=== PATIENT | female | born 1945 | race Caucasian/White ===

== ENCOUNTER 2016-07-21 08:47 | Day surgery (SDC) | payer OTHER, MEDICARE ==
[2016-07-21] MEDS ORDERED: PROPOFOL 20 ML ONE ×3 (09:19)
[2016-07-21 09:22] VITALS: BMI 26.6
[2016-07-21 10:02] VITALS: TEMP 97.5
[2016-07-21 11:48] VITALS: BP 104/52; PULSE 58
--- NOTE | 2016-07-24 13:42 | PATH ---
Surgical Pathology Report Patient Name: LISA MORGAN [facility]. Rec. #: [id number] /Age/Gender: 1945 (Age: 71) / F Account: [id number] Location: [facility]-ENDOS[facility] Taken: 07/21/2016 Received: 07/21/2016 Reported: 07/24/2016 Physicians: Darnell Sanders M.D. 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 DUODENUM, SECOND PORTION AND BULB, BIOPSY: DUODENAL MUCOSA WITH CHRONIC INFLAMMATION AND GREG'S GLANDS HYPERPLASIA. NO HISTOLOGIC EVIDENCE OF GLUTEN SENSITIVE ENTEROPATHY (CELIAC DISEASE). B. POSTBULBAR DUODENUM, STRICTURE, BIOPSY: DUODENAL MUCOSA WITH ACTIVE AND CHRONIC INFLAMMATION WITH FOCAL SURFACE ULCERATION, GREG'S GLANDS HYPERPLASIA AND FOCAL GASTRIC METAPLASIA CONSISTENT WITH ACTIVE PEPTIC DUODENITIS. NO HISTOLOGIC EVIDENCE OF GLUTEN SENSITIVE ENTEROPATHY (CELIAC DISEASE). NO DYSPLASIA/ADENOMA OR CARCINOMA IDENTIFIED. C. IRREGULAR Z-LINE/GE JUNCTION, BIOPSY: SQUAMOUS AND COLUMNAR MUCOSA WITH CHRONIC INFLAMMATION AND NTESTINAL METAPLASIA (CONSISTENT WITH SHEEHAN'S ESOPHAGUS). NEGATIVE FOR DYSPLASIA. Electronically Signed Jimbo Juarez M.D. Gross Description A. Received in formalin, labeled "second portion of duodenum and bulb" are 3 arambula, irregular portions of soft tissue averaging 0.4 cm in greatest dimension. The specimens are submitted in toto in one cassette. B. Received in formalin, labeled "biopsy duodenum post bulbar stricture" are 4 arambula, irregular portions of soft tissue ranging from 0.1-0.3 cm in greatest dimension. The specimens are submitted in toto in one cassette. C. Received in formalin, labeled "biopsy GE junction" are 6 arambula, irregular portions of soft tissue ranging from 0.1-0.3 cm in greatest dimension. The specimens are submitted in toto in one cassette. 07/21/2016 saudi07/21/2016
== END 2016-07-21 12:02 | disposition home or self-care (01) ==
LOC: JASU-ENDO 08:47
PROVIDERS: ATTEND Internal Medicine Gastroenterology
PROC: 0DB58ZX Excision of Esophagus, Via Natural or Artificial Opening Endoscopic, Diagnostic (ICD-10-PCS; 2016-07-21)
PROC: 0DB98ZX Excision of Duodenum, Via Natural or Artificial Opening Endoscopic, Diagnostic (ICD-10-PCS; principal; 2016-07-21 09:00)
DX: K31.5 Obstruction of duodenum (principal); K21.9 Gastro-esophageal reflux disease without esophagitis; K22.70 Barrett's esophagus without dysplasia; K44.9 Diaphragmatic hernia without obstruction or gangrene; K31.819 Angiodysplasia of stomach and duodenum without bleeding
CPT/HCPCS: 74220-TC; 74240-TC; 88305-TC

== ENCOUNTER 2017-09-20 06:19 | Day surgery (SDC) | payer OTHER, MEDICARE ==
[2017-09-19 15:54] VITALS: BMI 27.6
[2017-09-20] MEDS ORDERED: SUCCINYLCHOLINE CHLORIDE 200 MG/10 ML VIAL ONE (07:08)
[2017-09-20] MEDS ORDERED: MIDAZOLAM HCL 2 MG/2 ML SINGLE DOSE VIAL ONE (07:08)
[2017-09-20] MEDS ORDERED: PROPOFOL 20 ML ONE ×2 (07:08)
[2017-09-20] MEDS ORDERED: LIDOCAINE HCL 1%, 10 MG/ML (20ML VIAL) ONE (07:21)
[2017-09-20] MEDS ORDERED: BUPIVACAINE HCL/PF 0.5% (5MG/ML) 10 ML VIAL ONE (07:21)
[2017-09-20] MEDS ORDERED: oxyCODONE HCL 5 MG TABLET PO PRN ×2 (07:53)
[2017-09-20] MEDS ORDERED: ONDANSETRON 4 MG/2 ML VIAL IVPUSH PRN (07:53)
[2017-09-20] MEDS ORDERED: LACTATED RINGERS SOLUTION 1,000 ML IV SCH (08:00)
--- NOTE | 2017-09-20 08:19 | HP ---
Satellite [facility] - Chief Complaint Chief Complaint: left hand pain, numbness, weakness History of Present Illness: left CTS History Source: Patient Limitations to Obtaining History: No Limitations - Past Medical History Allergies/Adverse Reactions: Allergies Allergy/AdvReac Type Severity Reaction Status Date / Time No Known Allergies Allergy Verified 09/20/17 07:12 - Current Medications Current Medications: Home Medications Medication Instructions Recorded Acetaminophen [Tylenol] 1,300 mg PO DAILY PRN 07/20/16 Chondroitin Sulfate A [Chondroitin 333 mg PO DAILY 07/20/16 Sulfate] Garlic 1 each PO DAILY 07/20/16 Multivitamin with Minerals [Icaps 1 each PO DAILY 07/20/16 Plus] Grafton-3 Fatty Acids [Fish Oil] 300 mg PO DAILY 07/20/16 Pantoprazole Sodium [Protonix] 40 mg PO DAILY 07/20/16 Prevagen 1 tab PO DAILY 07/20/16 Ubidecarenone [Coenzyme Q-10] 100 mg PO DAILY 07/20/16 Bimatoprost [Lumigan] 1 drop IO HS 09/19/17 Bioflav,Lemon/Vit Bcomp,C 1 each PO DAILY 09/19/17 [Lipo-Flavonoid Plus Caplet] Oxycodone HCl/Acetaminophen 0.5 tab PO BID 09/19/17 [Percocet 5-325 mg Tablet] Timolol 0.5% [Timoptic 0.5%] 1 drop OD DAILY 09/19/17 Satellite Physical Exam - Physical Examination Vital Signs: Vital Signs Period Temp Pulse Resp BP Sys/Soliz Pulse Ox Last 24 Hr 97.8 F-97.8 F 58-58 20-20 119-119/70-70 97 General Appearance: Well Nourished ENT: Clear Lung: Clear to auscultation Heart: Regular rate & rhythm Breasts: Soft Abdomen: Soft Extremities: No edema Satellite Impression/Plan - Impression/Plan Impression: left CTS Operative Procedure: left CTR Date to be Performed: 09/20/17
[2017-09-20] MEDS ORDERED: ceFAZolin SODIUM 1 GM VIAL ONE (08:20)
[2017-09-20] MEDS ORDERED: ceFAZolin SODIUM 1 GM VIAL IVPB ONE (08:25)
[2017-09-20] MEDS ORDERED: ROCURONIUM BROMIDE 50 MG/5 ML VIAL ONE (08:29)
[2017-09-20] MEDS ORDERED: LIDOCAINE HCL 1%, 10 MG/ML (20ML VIAL) INF ONE (08:31)
[2017-09-20] MEDS ORDERED: BUPIVACAINE HCL/PF 0.5% (5MG/ML) 10 ML VIAL IJ ONE (08:31)
--- NOTE | 2017-09-20 08:54 | OP ---
Operative Note - Note: Operative Date: 09/20/17 Pre-Operative Diagnosis: left CTS Operation: left CTR Post-Operative Diagnosis: Same as Pre-op Surgeon: Edson Taylor Anesthesiologist/MEDICAL STENOGRAPHER: Aileen Turpin Anesthesia: Local, MAC Specimens Removed: tenosynovium Estimated Blood Loss (mls): 0 Drains, Volume Out (mls): 0 Blood Volume Replaced (mls): 0 Fluid Volume Replaced (mls): 500 Operative Report Dictated: Yes
[2017-09-20 09:38] VITALS: TEMP 97.7
--- NOTE | 2017-09-20 10:22 | SPEC ---
DATE OF OPERATION: 09/20/2017 PREOPERATIVE DIAGNOSES: Left carpal tunnel syndrome and tenosynovitis. POSTOPERATIVE DIAGNOSES: Left carpal tunnel syndrome and tenosynovitis. PROCEDURE: Left carpal tunnel release and tenosynovectomy. SURGEON: Edson Taylor MD ASSISTANTS: None. ANESTHESIOLOGIST: , AIRPLANE RENTAL CLERK. ANESTHESIA: MAC anesthesia, local injection 12 mL 0.50% Marcaine and 1% lidocaine mix. DRAINS: None. COMPLICATIONS: None. SPECIMEN: Tenosynovium, left wrist. BLOOD LOSS: None. BLOOD GIVEN: None. FLUID REPLACEMENT: 500 mL Plasmalyte. This patient is a 72-year-old female with a preoperative diagnosis of severe left carpal tunnel syndrome. After understanding the potential risks, complications, alternatives, and benefits of surgery versus nonsurgical treatment, the patient elected to undergo this procedure. DESCRIPTION OF PROCEDURE: Patient was brought to the operating room, peripheral IV placed, IV sedation given. One gram of intravenous Ancef was given. MAC anesthesia was induced. A tourniquet was applied to the left upper arm and the left upper extremity was prepped and draped in sterile fashion. The entire case was done under 3.8 loupe magnification. A marking pen was utilized to saad out a longitudinal incision in an already existing skin crease. Twenty mL of 0.5% Marcaine mixed with 1% Lidocaine was injected in and around the surgical incision. The left upper extremity was elevated, exsanguinated with an Esmarch bandage and the tourniquet inflated to 250 mmHg. A No. 15 scalpel blade was utilized to cut down through the skin. Subcutaneous hemostasis was achieved with the bipolar cautery. Dissection was done through the superficial palmar fascia. Self-retaining retractors were placed into the wound. Under direct visualization, the transverse carpal ligament was transected with a No. 15 scalpel blade, exposing the median nerve and the contents of the carpal tunnel. The distal and proximal extents of the release were completed with a Littler scissor and checked with irrigation and my small finger. They were seen to be complete. Limited dissection was done on the radial side of the median nerve and more extensive dissection was done on the ulnar side of the median nerve. The patients nerve was seen to be quite compressed by epineurium and therefore a limited epineurotomy was performed. A Ragnell retractor was used to gently retract the median nerve in a radial direction. The patient had a lot of tenosynovitis and therefore a tenosynovectomy was performed off all 9 flexor tendons. This was passed off the field as tenosynovium, left wrist. The floor of the carpal tunnel was checked. There were no abnormal masses or ganglion cysts. The area was copiously irrigated and washed out and closure begun. Undyed 4-0 Vicryl was used to close the deep dermal layer. Final skin reapproximation was done with horizontal mattress 4-0 nylon sutures. The area was then washed and dried, covered with Xeroform, 4x4s, fluffs between the fingers, Webril and a 4-inch plaster roll was utilized to make a volar splint, which was then wrapped with Susana and Coban. The tourniquet was taken down after a total tourniquet time of 16 minutes. There were no complications during the case. The patient tolerated the procedure well and was brought to the ambulatory recovery room in stable condition. Radha [id number]
[2017-09-20 14:40] VITALS: BP 121/65; PULSE 60
--- NOTE | 2017-09-21 16:22 | PATH ---
Surgical Pathology Report Patient Name: LISA MORGAN [facility]. Rec. #: [id number] /Age/Gender: 1945 (Age: 72) / F Account: [id number] Location: [facility] SURGICAL Taken: 09/20/2017 Received: 09/20/2017 Reported: 09/21/2017 Physicians: Edson Taylor M.D. Specimen(s) Received LEFT TENOSYNOVIUM Clinical History Left carpal tunnel Final Diagnosis Tenosynovium, LEFT, carpal tunnel release: Benign dense fibroconnective tissue. Electronically Signed Lizzeth Chaves M.D. Gross Description Received in formalin labeled "left tenosynovium," is a 1.3 x 1.2 x 0.3 cm aggregate of arambula-yellow, irregular portions of soft tissue, consistent with tenosynovium. The specimen is entirely submitted in one cassette. /09/20/201709/20/2017
== END 2017-09-20 12:45 | disposition home or self-care (01) ==
LOC: JASU-SURG 06:19
PROVIDERS: ATTEND Orthopaedic Surgery
PROC: 01N50ZZ Release Median Nerve, Open Approach (ICD-10-PCS; principal; 2017-09-20 08:00)
DX: G56.02 Carpal tunnel syndrome, left upper limb (principal)
CPT/HCPCS: 88304-TC; 94760

== ENCOUNTER 2018-02-03 12:10 | Emergency (ER) | payer OTHER, MEDICARE ==
[2018-02-03 12:15] VITALS: BMI 26.5
[2018-02-03] MEDS ORDERED: ONDANSETRON 4 MG/2 ML VIAL IVPB ONE (12:42)
[2018-02-03] MEDS ORDERED: SODIUM CHLORIDE 1,000 ML IV STA (12:45)
[2018-02-03] MEDS ORDERED: ONDANSETRON 4 MG/2 ML VIAL ONE (12:56)
--- NOTE | 2018-02-03 13:11 | PDOC ---
History of Present Illness - General Chief Complaint: Nausea/Vomiting Stated Complaint: FOOD POISONING Time Seen by Provider: 02/03/18 12:18 History Source: Patient Exam Limitations: No Limitations - History of Present Illness Initial Comments: 02/03/18 13:03 72 yo female pmh of bilateral glaucoma and spinal stenosis presents to the ED for nausea and non bloody, non bilious vomiting since (January 31). Patient states she ate old cream cheese that started to turn orange on and night began to vomit everything she ate and drank including water and agustin edgardo. Patient has not eaten since and is currently vomiting clear mucous. Patient also admits to feeling bloated and dizzy . Patient denies recent travel, recent illness or anyone around her having similar symptoms. She also denies fevers/chills, abdominal pain, constipation/diarrhea, changes in urinary habits, SOB or CP. Past History - Past Medical History Allergies/Adverse Reactions: Allergies Allergy/AdvReac Type Severity Reaction Status Date / Time No Known Allergies Allergy Verified 02/03/18 12:15 Home Medications: Ambulatory Orders Acetaminophen [Tylenol] 650 mg PO DAILY PRN 07/20/16 Chondroitin Sulfate A [Chondroitin Sulfate] 333 mg PO DAILY 07/20/16 Garlic 1 each PO DAILY 07/20/16 Multivitamin with Minerals [Icaps Plus] 1 each PO DAILY 07/20/16 Start-3 Fatty Acids [Fish Oil] 300 mg PO DAILY 07/20/16 Pantoprazole Sodium [Protonix] 40 mg PO DAILY 07/20/16 Prevagen 1 tab PO DAILY 07/20/16 Ubidecarenone [Coenzyme Q-10] 100 mg PO DAILY 07/20/16 Bimatoprost [Lumigan] 1 drop IO HS 09/19/17 Bioflav,Lemon/Vit Bcomp,C [Lipo-Flavonoid Plus Caplet] 1 each PO DAILY 09/19/17 Oxycodone HCl/Acetaminophen [Percocet 5-325 mg Tablet] 0.5 tab PO BID 09/19/17 Timolol 0.5% [Timoptic 0.5%] 1 drop OD DAILY 09/19/17 Ondansetron [Zofran *Odt*] 4 mg SL TID #6 od.tablet 02/03/18 Anemia: No Asthma: No Cancer: No Cardiac Disorders: Yes (PALPITATIONS) CVA: No COPD: No CHF: No Dementia: No Diabetes: No GI Disorders: Yes (DIVERTICULOSIS,SHEEHAN'S ESOPHAGUS, DUODENAL ULCER WITH STRICTURE,) Disorders: No HTN: No Hypercholesterolemia: No Liver Disease: No Seizures: No Thyroid Disease: No - Surgical History Abdominal Surgery: No Appendectomy: No Cardiac Surgery: No Cholecystectomy: No Lung Surgery: No Neurologic Surgery: No Orthopedic Surgery: Yes (RIGHT GANGLION EXCISION) - Suicide/Smoking/Psychosocial Hx Smoking History: Former smoker Have you smoked in the past 12 months: No If you are a former smoker, when did you quit?: 2007 Information on smoking cessation initiated: No Hx Alcohol Use: No Drug/Substance Use Hx: No Substance Use Type: None Hx Substance Use Treatment: No Review of Systems - Review of Systems Constitutional: Yes: Other (dizzy). No: Chills, Diaphoresis, Fever HEENTM: No: Blurred Vision, Double Vision, Difficulty Swallowing Respiratory: No: Cough, Shortness of Breath Cardiac (ROS): Yes: Lightheadedness. No: Chest Pain, Palpitations ABD/GI: Yes: Nausea, Vomiting, Other (abdominal bloating). No: Abdominal Distended, Blood Streaked Bowels, Constipated, Diarrhea : No: Burning, Dysuria, Discharge, Frequency, Flank Pain, Hematuria, Pain Musculoskeletal: No: Muscle Pain, Muscle Weakness Integumentary: No: Dryness, Pallor Neurological: Yes: Dizziness. No: Headache, Numbness, Paresthesia, Weakness *Physical Exam - Vital Signs Last Vital Signs Temp Pulse Resp BP Pulse Ox 98.4 F 84 18 102/62 98 02/03/18 12:12 02/03/18 12:12 02/03/18 12:12 02/03/18 12:12 02/03/18 12:12 - Physical Exam General Appearance: Yes: Nourished, Appropriately Dressed. No: Apparent Distress HEENT: positive: EOMI, LEIGH ANN, Normal ENT Inspection. negative: Scleral Icterus ( R), Scleral Icterus (L) Neck: positive: Normal Thyroid, Supple Respiratory/Chest: positive: Lungs Clear, Normal Breath Sounds. negative: Chest Tender, Respiratory Distress Cardiovascular: positive: Regular Rhythm, Regular Rate, S1, S2. negative: Edema , JVD, Murmur Vascular Pulses: Dorsalis-Pedis (R): 4+, Doralis-Pedis (L): 4+ Gastrointestinal/Abdominal: positive: Normal Bowel Sounds, Soft. negative: Pulsatile Mass, Increased Bowel Sounds, Guarding, Rebound, Tenderness Musculoskeletal: negative: CVA Tenderness Extremity: positive: Normal Capillary Refill, Normal Inspection Integumentary: positive: Normal Color, Dry, Warm. negative: Pale Neurologic: positive: director of cardiac cath lab II-XII NML intact, Fully Oriented, Alert, Normal Mood/ Affect, Normal Response Heart Score/ECG Review - ECG Intrepretation Rhythm: Regular Rhythm - Lindrith Lindrith: Normal - ECG Impressions Normal ECG: Yes Non-specific ST Elevation: No Ischemic Changes: No (compared to prior EKG 09/06/2017 similar minor depressions in v4, v5 and v6) Torsades rayo Pointes: No WPW: No ED Treatment Course - LABORATORY CBC & Chemistry Diagram: 02/03/18 12:30 02/03/18 12:30 Medical Decision Making - Medical Decision Making 02/03/18 13:41 72 yo female presents to ED for non bloody, non bilious vomiting for 4 days. States she ate old cream cheese 4 days ago that was going bad. DDx includes but not limited to: food poisoning, gastritis, ACS. CBC, CMP, trops, lipase, lactate negative EKG no change from september 2017 Patient resting comfortably denies current nausea and after PO challenge, no vomiting. Patient complaining of head pressure and received IV Tylenol. 02/03/18 17:03 Patient states her head pressure has improved Spoke with PCP Dr. Ale Billings, will see patient tomorrow in clinic. Send patient home wit 4mg zofran, 6 tablets *DC/Admit/Observation/Transfer Diagnosis at time of Disposition: Food poisoning Qualifiers: Encounter type: initial encounter Injury intent: accidental or unintentional Qualified Code(s): T62.91XA - Toxic effect of unspecified noxious substance eaten as food, accidental (unintentional), initial encounter - Discharge Dispostion Disposition: HOME Condition at time of disposition: Good Decision to Admit order: No - Prescriptions Prescriptions: Ondansetron [Zofran *Odt*] 4 mg SL TID #6 od.tablet - Referrals Referrals: Ale Billings [Staff Physician] - - Patient Instructions Printed Discharge Instructions: How to Avoid Food Poisoning, DI for Nausea -- Adult, DI for Vomiting -- Adult Additional Instructions: Please return to the Emergency Room for new or worsening symptoms such as but not limited to: loss of consciousness, excessive weakness, persistent vomiting that does not improve with prescribed medications especially if there is blood or bright green sputum present. Keep hydrated and drink 6-8 glasses of water a day. Take Zofran as prescribed for nausea Take 500mg of tylenol every 4-6 hours as needed for the headache/pressure Please follow up with your PCP Dr. Billings tomorrow who is expecting your call. - Post Discharge Activity
[2018-02-03 13:16] LABS: BASO % 0.5 % (0-2.0); HEMATOCRIT 44.4 % (32.4-45.2); HEMOGLOBIN 15.1 GM/dL (10.7-15.3); LYMPH % 5.4 % (8-40); MCH 29.1 pg (25.7-33.7); MCHC 33.9 g/dl (32.0-36.0); MEAN CELL VOLUME 85.9 fl (80-96); MEAN PLT VOLUME 9.5 fl (7.5-11.1); MONO % 6.4 % (3.8-10.2); NEUT % 87.7 % (42.8-82.8); PLATELET COUNT 132 K/MM3 (134-434); RBC 5.17 M/mm3 (3.60-5.2); RDW 13.2 % (11.6-15.6)
[2018-02-03 13:28] LABS: ALBUMIN 3.6 g/dl (3.4-5.0); ANION GAP 8 (8-16); BILIRUBIN,TOTAL 0.4 mg/dL (0.2-1.0); BLOOD UREA NITROGEN 15 mg/dL (7-18); CALCIUM 8.9 mg/dL (8.5-10.1); CHLORIDE 101 mmol/L (98-107); CO2 27 mmol/L (21-32); CREATININE 0.9 mg/dL (0.55-1.02); GLUCOSE,RANDOM 124 mg/dL (74-106); LIPASE 133 U/L (73-393); POTASSIUM 4.4 mmol/L (3.5-5.1); SGOT/AST 40 U/L (15-37); SGPT/ALT 35 U/L (12-78); SODIUM 136 mmol/L (136-145); TOT PROT 7.5 g/dl (6.4-8.2)
--- NOTE | 2018-02-03 13:30 | PDOC ---
Attending Attestation - Resident Resident Name: Jacob Staley - ED Attending Attestation I have performed the following: I have examined & evaluated the patient, The case was reviewed & discussed with the resident, I agree w/resident's findings & plan, Exceptions are as noted - HPI HPI: 02/03/18 16:40 Patient is a 72 year old female with a significant past medical history of spinal stenosis, who presents to the ED with complaints of nausea and vomiting that began afternoon. Patient reports eating cream cheese morning that she states was orange in color and may have been old. She reports shortly after ingesting cheese, she states she began to experience multiple episodes of NBNB vomiting, but denies any diarrhea. Patient reports being unable to eat or drink anything since secondary to nausea and vomiting. She reports 3-4 episodes of vomiting daily since. She reports experiencing associated symptoms of lightheadedness. She also reports gradual onset frontal headache since this morning. Last BM this morning was a bit loose , but brown non bloody. No treatments tried. Denies chest pain, Sob. Denies fevers, chills. Denies contact with sick individuals, out of state traveling. Denies any change in diet. Denes any other symptoms. Allergies: None Social history: Former smoker (Last 2007). No alcohol. No illicit drugs. Surgical history: Right ganglion excision. PMD: None - Physicial Exam PE: 02/03/18 16:49 GENERAL: Awake, alert, and fully oriented, in no acute distress HEAD: No signs of trauma EYES: PERRLA, EOMI, sclera anicteric, conjunctiva clear ENT: Auricles normal inspection, hearing grossly normal, nares patent, oropharynx clear without exudates. Moist mucosa LUNGS: Breath sounds equal, clear to auscultation bilaterally. No wheezes, and no crackles HEART: Regular rate and rhythm, normal S1 and S2, no murmurs, rubs or gallops ABDOMEN: Soft, nontender, normoactive bowel sounds. No guarding, no rebound. No masses. No CVAT EXTREMITIES: Normal range of motion, no edema. No clubbing or cyanosis. No cords, erythema, or tenderness NEUROLOGICAL: Normal speech, cranial nerves intact, negative pronator drift, 5/ 5 strength in all 4 extremities, normal sensation to light touch in all 4 extremities, normal cerebellar exam, normal gait, normal reflexes and tone SKIN: Warm, Dry, normal turgor, no rashes or lesions noted. - Medical Decision Making 02/03/18 16:51 72yo F presents to the ED with 4 days of N/V after eating cheese. No diarrhea, last BM this morning was loose. Exam wnl, no abd ttp and pt has no c/ o abd pain. Likely enteritis. Labs thus far wnl. Pt tolerated PO 2 hours ago. Pt given fluids for lightheadness (likely dehydrated) and tylenol for headache with good response. Will likely DC pt as she is well appearing, now tolerating PO. Called pt's PMD Dr. Joceline Nunn, awaiting a call back. 02/03/18 17:31 Headache has resolved. Case discussed with Dr. Nunn who agrees with DC. Dr. Nunn would like pt to call tomorrow. Pt requests DC home I discussed the physical exam findings, ancillary test results and final diagnoses with the patient. I answered all of the patient's questions. The patient was satisfied with the care received and felt comfortable with the discharge plan and treatment plan. The patient will call their primary care physician within 24 hours to arrange follow-up and will return to the Emergency Department with any new, persistent or worsening symptoms. Heart Score/ECG Review #1 02/03/18 17:31 Twelve-lead EKG was performed and reviewed by me. Normal sinus rhythm, rate 70 to. Normal axis and intervals. No ST elevations. Sub 1mm std in V5/V6, when compared to EKG from 09/06/2017, no significant change.
[2018-02-03 13:31] LABS: ALK PHOS 79 U/L (45-117)
[2018-02-03] MEDS ORDERED: ACETAMINOPHEN INJECTION 100 ML IVPB ONE (15:29)
[2018-02-03 15:43] VITALS: TEMP 98
[2018-02-03] MEDS ORDERED: SODIUM CHLORIDE 500 ML IV STA (16:35)
[2018-02-03 17:43] VITALS: BP 106/62; PULSE 64
--- NOTE | 2018-02-04 10:19 | EKG ---
Test Reason : Blood Pressure : / mmHG Vent. Rate : 072 BPM Atrial Rate : 072 BPM P-R Int : 148 ms QRS Dur : 086 ms QT Int : 380 ms P-R-T Axes : 053 019 033 degrees QTc Int : 416 ms NORMAL SINUS RHYTHM POSSIBLE LEFT ATRIAL ENLARGEMENT NONSPECIFIC ST ABNORMALITY ABNORMAL ECG WHEN COMPARED WITH ECG OF 06-SEP-2017 08:36, T WAVE VARIATION Confirmed by EMEKA HECTOR MD ([id number]) on 02/04/2018 10:19:02 AM Referred By: Confirmed By:EMEKA HECTOR MD
== END 2018-02-03 17:42 | disposition home or self-care (01) ==
LOC: JER 12:10
PROC: 3E0337Z Introduction of Electrolytic and Water Balance Substance into Peripheral Vein, Percutaneous Approach (ICD-10-PCS; principal; 2018-02-03)
PROC: 3E033GC Introduction of Other Therapeutic Substance into Peripheral Vein, Percutaneous Approach (ICD-10-PCS; 2018-02-03)
DX: T62.8X1A Toxic effect of other specified noxious substances eaten as food, accidental (unintentional), initial encounter (principal); R11.2 Nausea with vomiting, unspecified; Y92.018 Other place in single-family (private) house as the place of occurrence of the external cause; Z87.19 Personal history of other diseases of the digestive system
CPT/HCPCS: 36415; 80053; 83605; 83690; 84484; 85025; 93005; 93010; 96361; 96374; 99284-25; J7030

== ENCOUNTER 2019-02-08 18:14 | Inpatient (IN) | payer OTHER, MEDICARE ==
[2019-02-08] MEDS ORDERED: FAMOTIDINE 20 MG/50 ML IVPB 20 MG/50 ML MG IVPB ONE ×2 (19:50→21:19)
[2019-02-08] MEDS ORDERED: MAG HYDROX/AL HYDROX/SIMETH -MYLANTA- ORAL SUSPENSION PO ONE (19:50)
[2019-02-08 20:21] LABS: BASO % 0.1 % (0-2.0); HEMATOCRIT 45.2 % (32.4-45.2); HEMOGLOBIN 15.2 GM/dL (10.7-15.3); LYMPH % 3.5 % (8-40); MCH 29.8 pg (25.7-33.7); MCHC 33.6 g/dl (32.0-36.0); MEAN CELL VOLUME 88.6 fl (80-96); MEAN PLT VOLUME 9.2 fl (7.5-11.1); MONO % 8.5 % (3.8-10.2); NEUT % 87.9 % (42.8-82.8); PLATELET COUNT 238 K/MM3 (134-434); RDW 13.4 % (11.6-15.6); WHITE BLOOD COUNT 13.7 K/mm3 (4.0-10.0)
--- NOTE | 2019-02-08 20:25 | PDOC ---
History of Present Illness <Deana Casarez - Last Filed: 02/08/19 23:41> - History of Present Illness Initial Comments: Ms. Paul is a 73 y/o female with extensive PMH including HTN, HLD, cardiac stents, Sheehan's esophagus, presenting with nausea and vomiting that started yesterday afternoon around 4pm. Reports that she has been vomiting after eating onions and drinking prune juice. Reports she is mildly constipated with smaller stools. Denies fever, chest pain, shortness of breath. Denies blood in the vomit or blood in the stool. Reports abdominal fullness. Denies headache, dizziness, dysuria, hematuria. SurgHx: partial hysterectomy, eye surgeries, no abdominal surgery SocHx: no ETOH, no smoking Meds: on clopidogrel <Lopez Erazo - Last Filed: 02/09/19 00:10> - General Chief Complaint: Pain Stated Complaint: ABDOMINAL PAIN Time Seen by Provider: 02/08/19 18:45 Past History <Deana Casarez - Last Filed: 02/08/19 23:41> - Past Medical History Anemia: No Asthma: No Cancer: No Cardiac Disorders: Yes (PALPITATIONS) CVA: No COPD: No CHF: No Dementia: No Diabetes: No GI Disorders: Yes (DIVERTICULOSIS,SHEEHAN'S ESOPHAGUS, DUODENAL ULCER WITH STRICTURE,) Disorders: No HTN: No Hypercholesterolemia: No Liver Disease: No Seizures: No Thyroid Disease: No Other medical history: chronic back pain takes oxycodone daily - Surgical History Abdominal Surgery: No Appendectomy: No Cardiac Surgery: No Cholecystectomy: No Lung Surgery: No Neurologic Surgery: No Orthopedic Surgery: Yes (RIGHT GANGLION EXCISION) - Suicide/Smoking/Psychosocial Hx Smoking History: Never smoked Have you smoked in the past 12 months: No If you are a former smoker, when did you quit?: 2007 Hx Alcohol Use: No Drug/Substance Use Hx: No Substance Use Type: None Hx Substance Use Treatment: No <Lopez Erazo - Last Filed: 02/09/19 00:10> - Past Medical History Allergies/Adverse Reactions: Allergies Allergy/AdvReac Type Severity Reaction Status Date / Time No Known Allergies Allergy Verified 02/08/19 18:23 Home Medications: Ambulatory Orders Acetaminophen [Tylenol] 650 mg PO DAILY PRN 07/20/16 Chondroitin Sulfate A [Chondroitin Sulfate] 333 mg PO DAILY 07/20/16 Garlic 1 each PO DAILY 07/20/16 Multivitamin with Minerals [Icaps Plus] 1 each PO DAILY 07/20/16 [place]-3 Fatty Acids [Fish Oil] 300 mg PO DAILY 07/20/16 Pantoprazole Sodium [Protonix] 40 mg PO DAILY 07/20/16 Prevagen 1 tab PO DAILY 07/20/16 Ubidecarenone [Coenzyme Q-10] 100 mg PO DAILY 07/20/16 Bimatoprost [Lumigan] 1 drop IO HS 09/19/17 Bioflav,Lemon/Vit Bcomp,C [Lipo-Flavonoid Plus Caplet] 1 each PO DAILY 09/19/17 Oxycodone HCl/Acetaminophen [Percocet 5-325 mg Tablet] 0.5 tab PO BID 09/19/17 Timolol 0.5% [Timoptic 0.5%] 1 drop OD DAILY 09/19/17 Ondansetron [Zofran *Odt*] 4 mg SL TID #6 od.tablet 02/03/18 Review of Systems - Review of Systems Comments:: GENERAL/CONSTITUTIONAL: No fever or chills. No weakness._ HEAD, EYES, EARS, NOSE AND THROAT: No change in vision. No ear pain or discharge. No sore throat._ CARDIOVASCULAR: No chest pain or shortness of breath_ RESPIRATORY: Denies cough, hemoptysis_ GASTROINTESTINAL: Reports abdominal pain, nausea, vomiting, mild constipation. Denies diarrhea. GENITOURINARY: No dysuria, frequency, or change in urination._ MUSCULOSKELETAL: No joint or muscle swelling or pain. No neck or back pain. SKIN: No rash. NEUROLOGIC: No headache, vertigo, loss of consciousness, or change in strength/ sensation._ ENDOCRINE: No increased thirst. No abnormal weight change. HEMATOLOGIC/LYMPHATIC: No anemia, easy bleeding, or history of blood clots. ALLERGIC/IMMUNOLOGIC: No hives or skin allergy. <Lopez Erazo - Last Filed: 02/09/19 00:10> *Physical Exam - Vital Signs Last Vital Signs Temp Pulse Resp BP Pulse Ox 98.3 F 70 18 197/81 H 98 02/08/19 18:20 02/08/19 18:20 02/08/19 18:20 02/08/19 18:20 02/08/19 18:20 <Deana Casarez - Last Filed: 02/08/19 23:41> - Vital Signs Last Vital Signs Temp Pulse Resp BP Pulse Ox 98.3 F 70 18 197/81 H 98 02/08/19 18:20 02/08/19 18:20 02/08/19 18:20 02/08/19 18:20 02/08/19 18:20 - Physical Exam Comments: PE GENERAL: Awake, alert, and oriented to person/place/time, in no acute distress_ HEAD: No signs of trauma, normocephalic, atraumatic EYES: PERRLA, EOMI, sclera anicteric, conjunctiva clear ENT: Hearing grossly normal, nares patent, oropharynx clear without exudates. No uvular deviation. Moist mucosa_ NECK: Normal ROM, supple, no lymphadenopathy, JVD, or masses_ LUNGS: No distress, speaks in full sentences, clear to auscultation bilaterally _ HEART: Regular rate and rhythm, normal S1 and S2, no murmurs appreciated, peripheral pulses normal and equal bilaterally._ ABDOMEN: Soft, diffuse pressure in abdomen but no tenderness. No rebound, no guarding. BACK: No CVA tenderness bilaterally. EXTREMITIES: Normal inspection, Normal range of motion, no edema. No clubbing or cyanosis_ NEUROLOGICAL: Cranial nerves II through XII grossly intact. Normal speech, normal gait, no focal sensorimotor deficits _ SKIN: Warm, Dry, normal turgor, no rashes or lesions noted_ <Lopez Erazo - Last Filed: 02/09/19 00:10> ED Treatment Course - LABORATORY CBC & Chemistry Diagram: 02/08/19 20:10 02/08/19 20:10 - ADDITIONAL ORDERS Additional order review: Laboratory Results 02/08/19 02/08/19 02/08/19 20:10 20:10 20:10 PT with INR 12.60 INR 1.07 PTT (Actin FS) 30.6 Sodium 138 Potassium 4.4 Chloride 104 Carbon Dioxide 27 Anion Gap 7 L BUN 12.5 Creatinine 0.7 Est GFR (CKD-EPI)AfAm 101.03 Est GFR (CKD-EPI)NonAf 87.17 Random Glucose 128 H Calcium 9.6 Total Bilirubin 3.6 H AST 471 H ALT 348 H Alkaline Phosphatase 301 H Creatine Kinase 83 Troponin I < 0.02 Total Protein 7.4 Albumin 4.0 02/08/19 20:10 RBC 5.10 MCV 88.6 MCHC 33.6 RDW 13.4 MPV 9.2 Neutrophils % 87.9 H Lymphocytes % 3.5 L D Monocytes % 8.5 Eosinophils % 0.0 Basophils % 0.1 - RADIOLOGY Radiology Studies Ordered: Category Date Time Status CHEST X-RAY PORTABLE* [RAD] Stat Radiology 02/08/19 23:36 Ordered - Medications Given in the ED: ED Medications Discontinued Medications Generic Name Dose Route Start Last Admin Trade Name Juarezq PRN Reason Stop Dose Admin Famotidine/Sodium Chloride 20 mg in 50 mls @ 100 mls/hr 02/08/19 19:50 21:30 Pepcid 20 Mg Premixed Ivpb - IVPB 02/08/19 20:19 100 mls/hr ONCE ONE Administration Ondansetron HCl 4 mg 02/08/19 20:34 02/08/19 21:30 Zofran Injection IVPUSH 02/08/19 20:35 4 mg ONCE ONE Administration <Deana Casarez - Last Filed: 02/08/19 23:41> - LABORATORY CBC & Chemistry Diagram: 02/08/19 20:10 02/08/19 20:10 - ADDITIONAL ORDERS Additional order review: 02/08/19 20:10 RBC 5.10 MCV 88.6 MCHC 33.6 RDW 13.4 MPV 9.2 Neutrophils % 87.9 H Lymphocytes % 3.5 L D Monocytes % 8.5 Eosinophils % 0.0 Basophils % 0.1 - RADIOLOGY Radiology Studies Ordered: Category Date Time Status ABDOMEN & PELVIS CT WITH CONTR [CT] Stat CT Scan 02/08/19 19:48 Ordered CHEST PA & LAT [RAD] Stat Radiology 02/08/19 19:44 Ordered <Lopez Erazo - Last Filed: 02/09/19 00:10> Medical Decision Making - Medical Decision Making 02/08/19 1900 73F with hx of HTN, HLD, on blood thinners, presenting with nausea/vomiting that started yesterday afternoon. Will obtain CBC, CMP, troponin, coags, CT abd/pelv w IV/PO contrast. 02/08/192014 EKG shows HR 63 bpm, NSR, no axis deviation, no ST elevation/depression 02/08/192029 BP reassessed - left arm 179/97, right arm 168/93. 02/09/19 00:08 CT abd/pelv shows distended gallbladder with mild edema and intraluminal gallstones, suspicious for cholecystitis. Intrahepatic and extrahepatic biliary ductal dilatation. Questionable small gallstone in distal CBD. Plan to admit for cholecystitis. Spoke with Dr. Billings, who accepts the patient for admission. <Lopez Erazo - Last Filed: 02/09/19 00:10> *DC/Admit/Observation/Transfer - Discharge Dispostion Decision to Admit order: Yes <Deana Casarez - Last Filed: 02/08/19 23:41> <Lopez Erazo - Last Filed: 02/09/19 00:10> Diagnosis at time of Disposition: Cholecystitis, Cholelithiasis, Cholangitis - Discharge Dispostion Condition at time of disposition: Guarded
[2019-02-08] MEDS ORDERED: ONDANSETRON 4 MG/2 ML VIAL IVPUSH ONE (20:34)
[2019-02-08 20:39] LABS: INR 1.07 (0.83-1.09); PROTHROMBIN TIME (PATIENT) 12.6 SEC (9.7-13.0)
[2019-02-08 20:42] LABS: ACTIVATED PTT 30.6 SECONDS (25.2-36.5)
[2019-02-08 20:50] LABS: BILIRUBIN,TOTAL 3.6 mg/dL (0.2-1); BLOOD UREA NITROGEN 12.5 mg/dL (7-18); CALCIUM 9.6 mg/dL (8.5-10.1); CREATININE 0.7 mg/dL (0.55-1.3); POTASSIUM 4.4 mmol/L (3.5-5.1); TOT PROT 7.4 g/dl (6.4-8.2)
[2019-02-08] MEDS ORDERED: ONDANSETRON 4 MG/2 ML VIAL ONE (21:18)
[2019-02-08] MEDS ORDERED: PIPERACILLIN/TAZOB 3.375 GM 3.375 GM in DEXTROSE 5%-WATER - 50 ML IVPB ONE (23:40)
--- NOTE | 2019-02-08 23:42 | PDOC ---
Documentation entered by Devora Grey SCRIBE, acting as scribe for Deana Casarez MD. Deana Casarez MD: This documentation has been prepared by the Que moffett Sammi, SCRIBE, under my direction and personally reviewed by me in its entirety. I confirm that the documentation accurately reflects all work, treatment, procedures, and medical decision making performed by me. Attending Attestation - Resident Resident Name: Lopez Erazo - ED Attending Attestation I have performed the following: I have examined & evaluated the patient, The case was reviewed & discussed with the resident, I agree w/resident's findings & plan - HPI HPI: 02/08/19 19:55 The patient is a 73 year old female, with a significant PMH of HTN, HLD, who presents to the emergency department for evaluation of 1 day of diffuse abdominal pain and several episodes of vomiting. The patient denies chest pain, shortness of breath, headache and dizziness. Denies fever, chills, diarrhea and constipation. Denies dysuria, frequency, urgency and hematuria. Allergies: NKA - Physicial Exam PE: 02/08/19 20:27 GENERAL: Obese. Awake, alert, and fully oriented, in no acute distress. Afibrile. Blood pressure equal in bilateral extremities (systolic 170 bilaterally) HEAD: No signs of trauma EYES: PERRLA, EOMI, sclera anicteric, conjunctiva clear NECK: Normal ROM, supple, no lymphadenopathy, JVD, or masses LUNGS: Breath sounds equal, clear to auscultation bilaterally. No wheezes, and no crackles HEART: Regular rate and rhythm, normal S1 and S2, no murmurs, rubs or gallops ABDOMEN: Soft, nontender, normoactive bowel sounds. No guarding, no rebound. No masses. No flank pain. EXTREMITIES: Normal range of motion, no pitting edema. No clubbing or cyanosis. No cords, erythema, or tenderness NEUROLOGICAL: Cranial nerves II through XII grossly intact. Normal speech SKIN: Warm, Dry, normal turgor, no rashes or lesions noted. - Medical Decision Making 02/08/19 23:34 Pt has abd distension; RUQ pain; no rebound and no guarding. She has a + de la garza sign on sono and a large GB stone and sludge; CBD dilation as well as GB wall thickening. She will have admission; PMD is Androne and we will ask them who they use for gen surg and for GI. 02/08/19 23:46 Patient Name: LISA MORGAN THIS IS A PRELIMINARY REPORT FROM [facility] EXAM: CT abdomen and pelvis with contrast IMAGES:420 DATE OF EXAM: 2019-02-08 22:22:10 REASON FOR EXAM: Abdomen pain COMPARISON: None Findings: Atelectasis and scarring in lung bases. No pleural effusions. *Distended gallbladder with mild edema and intraluminal gallstones, suspicious for cholecystitis. Intrahepatic and extrahepatic biliary ductal dilatation. Questionable small gallstone in distal common bile duct on coronal image 43. Pancreas, left adrenal gland, and spleen are unremarkable. Indeterminate 2.1 cm right adrenal nodule. Small right flank abdominal wall hernia containing fat. Tiny renal cysts. No renal or urinary calculi. No AAA. Bilateral hip arthroplasties. Moderate artifacts created by the hip prostheses partially obscure the pelvis. No obvious diverticulitis but the sigmoid colon is not well assessed due to the artifacts. No evidence for appendicitis, small bowel obstruction, free fluid, or free air. Scoliosis 02/08/19 23:46 02/09/19 00:28 Pt refusing to stay; she wants to go home to close her windows, see her cat, etc. Pt understands that she is jaundinced and may have cholangitis/peritonitis , she may etc. Pt wants to sign AMA; she states she will come back by later tonight. 02/09/19 01:33 Pt is willing to stay now that she knows that she will need to pay for one of her ER visits.
[2019-02-08] MEDS ORDERED: ONDANSETRON 4 MG/2 ML VIAL IVPB PRN (23:54)
[2019-02-08] MEDS ORDERED: MORPHINE SULFATE 2 MG/ML VIAL IVPUSH PRN (23:54)
[2019-02-09] MEDS ORDERED: PIPERACILLIN/TAZOB 3.375 GM 3.375 GM/50 ML BAG IVPB ONE (00:44)
[2019-02-09] MEDS: PIPERACILLIN/TAZOB 3.375 GM 3.375 GM in DEXTROSE 5%-WATER - 50 ML IVPB SCH ×3 (01:00→17:34)
[2019-02-09] MEDS: SODIUM CHLORIDE 1,000 ML IV SCH ×2 (01:14→05:27)
[2019-02-09 05:14] VITALS: BMI 30.2
[2019-02-09 08:26] LABS: BASO % 0.2 % (0-2.0); EOS % 0.1 % (0-4.5); HEMOGLOBIN 13.9 GM/dL (10.7-15.3); LYMPH % 10.8 % (8-40); MCH 29.8 pg (25.7-33.7); MCHC 33.8 g/dl (32.0-36.0); MEAN PLT VOLUME 9.6 fl (7.5-11.1); MONO % 10.3 % (3.8-10.2); NEUT % 78.6 % (42.8-82.8); PLATELET COUNT 237 K/MM3 (134-434); RBC 4.66 M/mm3 (3.60-5.2); RDW 13.4 % (11.6-15.6); WHITE BLOOD COUNT 9.5 K/mm3 (4.0-10.0)
[2019-02-09 08:31] LABS: INR 1.21 (0.83-1.09); PROTHROMBIN TIME (PATIENT) 14.3 SEC (9.7-13.0)
[2019-02-09] MEDS ORDERED: PIPERACILLIN/TAZOBACTAM 3.375 GM VIAL IVPB ONE ×2 (08:39→17:02)
[2019-02-09] MEDS ORDERED: DEXTROSE 5%-WATER - 50 ML IVPB ONE ×2 (08:39→17:02)
[2019-02-09 08:51] LABS: BLOOD UREA NITROGEN 10.5 mg/dL (7-18); CREATININE 0.7 mg/dL (0.55-1.3); POTASSIUM 3.7 mmol/L (3.5-5.1)
--- NOTE | 2019-02-09 08:53 | CON.GI ---
Consult Consult Specialty:: GI: For Dr. Sanders who resumes care 02/10 Referred by:: Dr. Ale Billings Reason for Consultation:: Abdominal pain, elevated LFTs - History of Present Illness Chief Complaint: Abdominal pain History of Present Illness: 73F admitted through [facility] ER for evaluation of diffuse abdominal pain after eating breakfast yesterday along with nausea and vomiting. The pain became progressively worse prompting ER evaluation. She was noted to have elevated WBC of 13.7 liver chemistries with an ALP of 301 and bili of 3.6. In ED she was given IV Abx and IV fluids. Abd US revealed gallstones, thickened GB wall and intra/extrahepatic ductal dilatation. CT scan not yet read but I reviewed the images. Dilated intra and extrahepatic ducts were noted. She denies simiar episodes in the past. 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 Sanders in 2016 as well as upper GI series. She was recently placed on ASA/Plavix after she had a cardiac stent placed. 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 - Past Surgical History Past Surgical History: Yes: Joint Replacement (B/L hip replacement) - Alcohol/Substance Use Hx Alcohol Use: No History of Substance Use: reports: Cocaine (ex intranasal cocaine use) - Smoking History Smoking history: Former smoker Have you smoked in the past 12 months: No If you are a former smoker, when did you quit?: 2006 - Social History Usual Living Arrangement: Alone ADL: Independent Place of : [facility] History of Recent Travel: No Home Medications - Allergies Allergies/Adverse Reactions: Allergies Allergy/AdvReac Type Severity Reaction Status Date / Time No Known Allergies Allergy Verified 02/08/19 18:23 - Home Medications Home Medications: Ambulatory Orders Acetaminophen [Tylenol] 650 mg PO DAILY PRN 07/20/16 Chondroitin Sulfate A [Chondroitin Sulfate] 333 mg PO DAILY 07/20/16 Garlic 1 each PO DAILY 07/20/16 Multivitamin with Minerals [Icaps Plus] 1 each PO DAILY 07/20/16 [place]-3 Fatty Acids [Fish Oil] 350 mg PO DAILY 07/20/16 Pantoprazole Sodium [Protonix] 40 mg PO HS 07/20/16 Ubidecarenone [Coenzyme Q-10] 100 mg PO DAILY 07/20/16 Bimatoprost [Lumigan] 1 drop IO HS 09/19/17 Bioflav,Lemon/Vit Bcomp,C [Lipo-Flavonoid Plus Caplet] 1 each PO DAILY 09/19/17 Oxycodone HCl/Acetaminophen [Percocet 5-325 mg Tablet] 0.5 tab PO BID 09/19/17 Timolol 0.5% [Timoptic 0.5%] 1 drop OS BID 09/19/17 Clopidogrel Bisulfate [Clopidogrel] 75 mg PO DAILY 02/09/19 Metoprolol Succinate 12.5 mg PO DAILY 02/09/19 Family Disease History - Family Disease History Family Disease History: Other: Father (: 75: [place]), Mother (: 85), Sister (2, healthy) Other Family History: No children, no family history of colorectal cancer or other GI malignancy Review of Systems - Review of Systems Constitutional: denies: Chills, Fever Cardiovascular: denies: Chest Pain Respiratory: reports: SOB (baseline) Gastrointestinal: reports: Abdominal Pain, Nausea, Vomiting. denies: Diarrhea, Dysphagia Physical Exam-GI Vital Signs: Vital Signs Temperature 98.5 F 02/09/19 04:45 Pulse Rate 75 02/09/19 04:45 Respiratory Rate 16 02/09/19 04:45 Blood Pressure 139/78 02/09/19 04:45 O2 Sat by Pulse Oximetry (%) 96 02/09/19 04:45 Constitutional: Yes: Calm Eyes: No: Sclera Icterus Cardiovascular: Yes: Regular Rate and Rhythm Respiratory: Yes: CTA Bilaterally Gastrointestinal Inspection: No: Scars ...Auscultate: Yes: Normoactive Bowel Sounds ...Palpate: Yes: Soft, Tenderness. No: Hepatomegaly, Splenomegaly Edema: No (No LE edema) Neurological: Yes: Alert Labs: CBC, BMP 02/09/19 06:25 INR, PTT INR 1.21 (0.83-1.09) H 02/09/19 06:25 Hepatic Panel Total Bilirubin 4.6 mg/dL (0.2-1) H 02/09/19 06:25 Direct Bilirubin 3.8 mg/dL (0.0-0.2) H 02/09/19 06:25 AST 366 U/L (15-37) H 02/09/19 06:25 ALT 339 U/L (13-61) H 02/09/19 06:25 Alkaline Phosphatase 282 U/L (45-117) H 02/09/19 06:25 Albumin 3.6 g/dl (3.4-5.0) 02/09/19 06:25 Imaging - Results Cat Scan: Image Reviewed Ultrasound: Report Reviewed Problem List - Problems (1) Biliary colic Assessment/Plan: Cholelithiasis with dilated biliary tract concerning for retained CBD stone. Clinically improved from initial presentation. Remains afebrile, improved leukocytosis and currently pain free. While currently there is no need for emergent biliary drainage / intervention, she will need further evaluation. I discussed the case with Biliary endoscopist Dr. Odonnell. Discussed finding of post bulbar stricture as well, which could be preclude ERCP. For now: NPO IV Abx per ID MRCP ordered Surgery is on board as patient will need eventual cholecystectomy Plavix has been held, ASA continued given recent cardiac stent Plan will be for attempt at ERCP. If ERCP cannot be performed given post bulbar stricture, then IR will need to be involved for possible PTC Monitor LFTs Code(s): K80.50 - CALCULUS OF BILE DUCT W/O CHOLANGITIS OR CHOLECYST W/O OBST
[2019-02-09 09:00] LABS: ALBUMIN 3.6 g/dl (3.4-5.0); BILIRUBIN,DIRECT 3.8 mg/dL (0.0-0.2); BILIRUBIN,TOTAL 4.6 mg/dL (0.2-1); TOT PROT 6.6 g/dl (6.4-8.2)
--- NOTE | 2019-02-09 09:08 | HP ---
Admitting History and Physical - Primary Care Physician PCP: Ale Billings S - Admission Chief Complaint: abndominal pain N/V History of Present Illness: Ms. Paul is a 73 y/o female with extensive PMH including HTN, HLD, cardiac stents in May 2018, García's esophagus, duodenal stricture and gallstones, presenting with abdominal pain. nausea and vomiting that started 2 days ago. Reports that she has been vomiting after eating onions and drinking prune juice. Reports she is mildly constipated with smaller stools. Denies fever, chest pain, shortness of breath. Denies blood in the vomit or blood in the stool. Reports abdominal fullness. Denies headache, dizziness, dysuria, hematuria. SurgHx: partial hysterectomy, eye surgeries, no abdominal surgery in ER received IVF IV ATB, pain meds and zofran and kept NPO; now feels better History Source: Patient, Medical Record Limitations to Obtaining History: No Limitations - Past Medical History Cardiovascular: Yes: CAD, HTN Pulmonary: Yes: COPD Musculoskeletal: Yes: Chronic low back pain - Smoking History Smoking history: Former smoker Have you smoked in the past 12 months: No If you are a former smoker, when did you quit?: 2006 - Alcohol/Substance Use Hx Alcohol Use: No History of Substance Use: reports: None - Social History Usual Living Arrangement: Yes: Alone ADL: Independent Home Medications - Allergies Allergies/Adverse Reactions: Allergies Allergy/AdvReac Type Severity Reaction Status Date / Time No Known Allergies Allergy Verified 02/08/19 18:23 - Home Medications Home Medications: Ambulatory Orders RX: Acetaminophen [Tylenol] 650 mg PO DAILY PRN 07/20/16 RX: Chondroitin Sulfate A [Chondroitin Sulfate] 333 mg PO DAILY 07/20/16 RX: Garlic 1 each PO DAILY 07/20/16 RX: Multivitamin with Minerals [Icaps Plus] 1 each PO DAILY 07/20/16 RX: [place]-3 Fatty Acids [Fish Oil] 350 mg PO DAILY 07/20/16 RX: Pantoprazole Sodium [Protonix] 40 mg PO HS 07/20/16 RX: Ubidecarenone [Coenzyme Q-10] 100 mg PO DAILY 07/20/16 Bimatoprost [Lumigan] 1 drop IO HS 09/19/17 Bioflav,Lemon/Vit Bcomp,C [Lipo-Flavonoid Plus Caplet] 1 each PO DAILY 09/19/17 Oxycodone HCl/Acetaminophen [Percocet 5-325 mg Tablet] 0.5 tab PO BID 09/19/17 Timolol 0.5% [Timoptic 0.5%] 1 drop OS BID 09/19/17 Clopidogrel Bisulfate [Clopidogrel] 75 mg PO DAILY 02/09/19 RX: Metoprolol Succinate 12.5 mg PO DAILY 02/09/19 Family Disease History - Family Disease History Family History: Unremarkable Review of Systems - Review of Systems Constitutional: reports: Loss of Appetite. denies: Chills, Fever Eyes: denies: Blurred Vision, Double Vision HENT: denies: Epistaxis Neck: denies: Stiffness, Tenderness Cardiovascular: denies: Chest Pain, Shortness of Breath Respiratory: denies: Cough, SOB Gastrointestinal: reports: Abdominal Pain, Nausea, Vomiting. denies: Rectal Bleeding, Vomiting Blood Genitourinary: denies: Dysuria, Flank Pain Musculoskeletal: reports: Back Pain (chronic) Neurological: denies: Change in LOC, Change in Speech, Confusion, Dizziness, Syncope Hematology/Lymphatic: denies: Easily Bruised, Excessive Bleeding Psychiatric: denies: Anxiety, Depression Physical Examination Vital Signs: Vital Signs Temperature 98.5 F 02/09/19 04:45 Pulse Rate 75 02/09/19 04:45 Respiratory Rate 16 02/09/19 04:45 Blood Pressure 139/78 02/09/19 04:45 O2 Sat by Pulse Oximetry (%) 96 02/09/19 04:45 Constitutional: Yes: No Distress, Calm Eyes: Yes: Conjunctiva Clear HENT: Yes: Atraumatic Neck: Yes: Supple Cardiovascular: Yes: Regular Rate and Rhythm Respiratory: Yes: CTA Bilaterally Gastrointestinal: Yes: Soft, Tenderness (mild RUQ) Renal/: No: CVA Tenderness - Left, CVA Tenderness - Right Musculoskeletal: No: Joint Stiffness, Joint Swelling Extremities: No: Cold, Cool, Cyanosis Edema: No Integumentary: Yes: Bruising (L thigh pt said from her cat at home). No: Rash, Venous Stasis Changes Neurological: Yes: WNL, Alert, Oriented ...Motor Strength: WNL Psychiatric: Yes: WNL, Alert, Oriented. No: Agitated, Suicidal Ideation Labs: CBC, BMP 02/09/19 06:25 02/09/19 06:25 Imaging - Results Chest X-ray: Report Reviewed Cat Scan: Report Reviewed Ultrasound: Report Reviewed EKG: Report Reviewed Other: Report Reviewed Assessment/Plan Ms. Paul is a 73 y/o female with extensive PMH including HTN, HLD, cardiac stents May 2018, COPD, García's esophagus, duodenal stricture and gallstones presenting with abdominal pain, nausea and vomiting high LFTs high Bili r/o CBD obstruction NPO, IVF, IV antibiotics pain meds prn pt prefers oxycodone than morphine zofran prn f/u LFTs d/w GI dr Berman: current plan, will need ERCP but duodenal stricture might be a problem, will d/w dr Sanders in am d/w surgery: will see pt; if unable to do ERCP here consider transfer to tertiary center IV ATB/ ID; f/u cultures; cardiology eval: for coronary stent 8-9 months ago on ASA and plavix but in the light of upcoming procedures will hold Asa and plavix and restart after the procedures; risk of UT while off AC d/w pt she is aware falls PFX prognosis guarded; d/w staff and d/w pt all the above t time 75 min
[2019-02-09] MEDS: PANTOPRAZOLE SODIUM 40 MG VIAL IVPB SCH (09:14)
--- NOTE | 2019-02-09 09:14 | CON.CARD ---
Consult Consult Specialty:: Cardiology Referred by:: Dr. Billings Reason for Consultation:: Cardiace evaluation (Coverage for Drs. Albright/ Bobbi) - History of Present Illness Chief Complaint: Abdominal pain History of Present Illness: Patient is a 73 year old female with history of HTN, hypercholesterolemia, CAD s /p PCI/stent (May 2018) and García's esophagus who presents with nausea, vomiting and abdominal pain. She denies chest pain, shortness of breath or palpitations. She denies chest pain, SOB or palpitations. She denies paroxysmal nocturnal dyspnea or orthopnea. She denies fever or chills. She denies headache or lightheadedness. US of abdomen revealed gallbladder sludge and small calculi. 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) - Past Surgical History Past Surgical History: Yes: Joint Replacement (B/L hip replacement), Stent - Alcohol/Substance Use Hx Alcohol Use: No History of Substance Use: reports: Cocaine (ex intranasal cocaine use) - Smoking History Smoking history: Former smoker Have you smoked in the past 12 months: No If you are a former smoker, when did you quit?: 2006 - Social History Usual Living Arrangement: Alone ADL: Independent History of Recent Travel: No Home Medications - Allergies Allergies/Adverse Reactions: Allergies Allergy/AdvReac Type Severity Reaction Status Date / Time No Known Allergies Allergy Verified 02/08/19 18:23 - Home Medications Home Medications: Ambulatory Orders Acetaminophen [Tylenol] 650 mg PO DAILY PRN 07/20/16 Chondroitin Sulfate A [Chondroitin Sulfate] 333 mg PO DAILY 07/20/16 Garlic 1 each PO DAILY 07/20/16 Multivitamin with Minerals [Icaps Plus] 1 each PO DAILY 07/20/16 [place]-3 Fatty Acids [Fish Oil] 350 mg PO DAILY 07/20/16 Pantoprazole Sodium [Protonix] 40 mg PO HS 07/20/16 Ubidecarenone [Coenzyme Q-10] 100 mg PO DAILY 07/20/16 Bimatoprost [Lumigan] 1 drop IO HS 09/19/17 Bioflav,Lemon/Vit Bcomp,C [Lipo-Flavonoid Plus Caplet] 1 each PO DAILY 09/19/17 Oxycodone HCl/Acetaminophen [Percocet 5-325 mg Tablet] 0.5 tab PO BID 09/19/17 Timolol 0.5% [Timoptic 0.5%] 1 drop OS BID 09/19/17 Clopidogrel Bisulfate [Clopidogrel] 75 mg PO DAILY 02/09/19 Metoprolol Succinate 12.5 mg PO DAILY 02/09/19 Family Disease History - Family Disease History Family Disease History: Other: Father (: 75: [place]), Mother (: 85) Review of Systems - Review of Systems Constitutional: denies: Chills, Fever Cardiovascular: denies: Chest Pain, Palpitations, Shortness of Breath Respiratory: denies: Cough, Hemoptysis, Orthopnea, PND, SOB, SOB on Exertion Gastrointestinal: reports: Abdominal Pain, Nausea, Vomiting. denies: Constipation, Diarrhea, Melena, Rectal Bleeding Neurological: denies: Dizziness, Headache, Seizure, Syncope Vital Signs: Vital Signs Temperature 98.5 F 02/09/19 04:45 Pulse Rate 75 02/09/19 04:45 Respiratory Rate 16 02/09/19 04:45 Blood Pressure 139/78 02/09/19 04:45 O2 Sat by Pulse Oximetry (%) 96 02/09/19 04:45 Eyes: Yes: PERRL HENT: Yes: Atraumatic Neck: Yes: Supple Respiratory: Yes: CTA Bilaterally Gastrointestinal: Yes: Normal Bowel Sounds, Soft. No: Tenderness Cardiovascular: Yes: Regular Rate and Rhythm JVD: No PMI: Non-Displaced Heart Sounds: Yes: S1, S2 Murmur: No: Systolic Murmur, Diastolic Murmur Edema: No - Other Data Labs, Other Data: CBC, BMP 02/09/19 06:25 02/09/19 06:25 INR, PTT INR 1.21 (0.83-1.09) H 02/09/19 06:25 Troponin, BNP 02/08/19 02/09/19 20:10 06:25 Troponin I < 0.02 0.05 Sinus rhythm with APC Imaging - Results Chest X-ray: Report Reviewed (Unremarkable) Cat Scan: Report Reviewed (Abdominal CT thick gallbladder with calculi) Ultrasound: Report Reviewed (Abdominal US thickened gallbladder) EKG: Report Reviewed Problem List - Problems (1) CAD (coronary artery disease) Code(s): I25.10 - ATHSCL HEART DISEASE OF [place] CORONARY ARTERY W/O ANG PCTRS (2) History of coronary artery stent placement Code(s): Z95.5 - PRESENCE OF CORONARY ANGIOPLASTY IMPLANT AND GRAFT (3) HTN (hypertension) Code(s): I10 - ESSENTIAL (PRIMARY) HYPERTENSION Qualifiers: Hypertension type: essential hypertension Qualified Code(s): I10 - Essential (primary) hypertension (4) Hypercholesterolemia Code(s): E78.00 - PURE HYPERCHOLESTEROLEMIA, UNSPECIFIED (5) Cholangitis Code(s): K83.09 - OTHER CHOLANGITIS (6) Cholecystitis Code(s): K81.9 - CHOLECYSTITIS, UNSPECIFIED (7) Cholelithiasis Code(s): K80.20 - CALCULUS OF GALLBLADDER W/O CHOLECYSTITIS W/O OBSTRUCTION Assessment/Plan 1. Thickened gallbladder with gallstones 2. CAD s/p PCI/stent, angina pectoris 3. HTN 4. Hypercholesterolemia 5. García's esophagus PLAN: 1. GI input noted regarding possible ERCP 2. Surgical input to follow 3. Ideally DAPT therapy is recommended for 1 year to prevent in-stent restenosis. Currently on ASA. Clopidogrel has not been started with plan for further GI evaluation and surgical input to follow. If surgery is not planned, would restart ASA and Plavix unless absolutely contraindicated. 4. Continue Metoprolol as tolerated 5. Antibiotic coverage Further plans are to be followed Sang Mallory Jin MD
[2019-02-09] MEDS: ASPIRIN COATED 81 MG TABLET.EC PO SCH (09:17)
[2019-02-09] MEDS: HEPARIN NA (PORCINE) 5,000 UNITS/ML 1ML VIAL SQ SCH ×2 (09:26→21:42)
[2019-02-09] MEDS ORDERED: metoPROLOL SUCCINATE 25 MG TAB.SR.24H (FP) PO SCH (10:00)
[2019-02-09] MEDS ORDERED: PT OWN MED DRAWER 7, Y5N ONE (10:02)
[2019-02-09] MEDS: TIMOLOL 0.5% OPHTHALMIC SOL 5 ML BOTTLE OD SCH (10:08)
[2019-02-09] MEDS ORDERED: oxyCODONE HCL 5 MG TABLET PO PRN (10:26)
--- NOTE | 2019-02-09 10:28 | EKG ---
Test Reason : Blood Pressure : / mmHG Vent. Rate : 063 BPM Atrial Rate : 063 BPM P-R Int : 142 ms QRS Dur : 078 ms QT Int : 418 ms P-R-T Axes : 054 020 030 degrees QTc Int : 427 ms POOR DATA QUALITY, INTERPRETATION MAY BE ADVERSELY AFFECTED SINUS RHYTHM WITH PREMATURE ATRIAL COMPLEXES POSSIBLE LEFT ATRIAL ENLARGEMENT BORDERLINE ECG WHEN COMPARED WITH ECG OF 03-FEB-2018 13:05, PREMATURE ATRIAL COMPLEXES ARE NOW PRESENT Confirmed by Paula White ([id number]) on 02/09/2019 10:28:36 AM Referred By: Confirmed By:Paula White
[2019-02-09 11:33] LABS: URINE APPEARANCE CLEAR; URINE BILIRUBIN 2+ (NEGATIVE); URINE COLOR DK YELLOW; URINE GLUCOSE (UA) NEGATIVE (NEGATIVE); URINE KETONE NEGATIVE (NEGATIVE); URINE LEUK ESTERASE NEGATIVE (NEGATIVE); URINE NITRITE NEGATIVE (NEGATIVE); URINE PROTEIN TRACE (NEGATIVE); URINE UROBILINOGEN 0.2 mg/dL (0.2-1.0)
--- NOTE | 2019-02-09 13:36 | PN ---
Progress Note (short form) - Note Progress Note: ID CONSULT DICTATED CHOLECYSTITIS R/O BILIARY SEPSIS AWAIT C/S CONTINUE ZOSYN/ FLAGYL
--- NOTE | 2019-02-09 14:35 | CONS ---
DATE OF CONSULTATION: DATE OF DICTATION: 02/09/2019 HISTORY OF PRESENT ILLNESS: The patient is a 73-year-old female evaluated for possible biliary sepsis. The patient was admitted to the hospital on February 08, 2019, with a 1-day history of abdominal pain. She reports it developed into diffuse abdominal pain after eating a meal. She had associated nausea and vomiting. She presented to the emergency room where she was noted to have an elevated white blood cell count. A CAT scan of the abdomen and pelvis was performed and showed a thick-walled gallbladder with calculi. Acute cholecystitis could not be excluded. There was mild dilatation of the intra- and extrahepatic biliary ducts without obvious obstruction. She was admitted to the hospital and seen in consultation by GI. An MRCP was ordered. Results are pending. She was empirically treated with Zosyn and Flagyl. She denies any fever or chills. Cultures are pending. PAST MEDICAL HISTORY: Positive for hypertension, hyperlipidemia. ALLERGIES: No known allergies. MEDICATIONS: Include aspirin, metronidazole, Toprol, Protonix, Zosyn. SOCIAL HISTORY: She is a former smoker. No history of alcohol abuse or illicit drug use. PAST SURGICAL HISTORY: Status post bilateral total hip replacement. LABORATORY DATA: White count on admission 13.7, presently 9.5. Hematocrit 41.0. Platelet count 237. Creatinine 0.7. Total bilirubin 3.8. Alkaline phosphatase 282. AST 2066. Urinalysis negative for leukocyte esterase. PHYSICAL EXAMINATION: General: The patient is awake and responsive, ambulatory, not acutely toxic-appearing. Vital Signs: Temperature 98.8, blood pressure 128/64, pulse 61, regular, respirations 18 per minute. HEENT: Sclerae are anicteric. Heart Sounds: S1, S2. Lungs: Clear. Abdomen: Soft. There is no tenderness elicited. No epigastric or right upper quadrant tenderness. Extremities: Negative for edema. IMPRESSION: 1. Acute cholecystitis. 2. Rule out biliary sepsis. 3. Rule out choledocholithiasis. 4. Leukocytosis. PLAN: Await culture results, MRI results pending. Continue empiric antibiotic coverage of biliary pathogens with Zosyn and Flagyl. Further recommendations pending cultures. Will follow. Thank you for the kind referral. KARINA LINARES M.D. [id number]
--- NOTE | 2019-02-09 19:09 | PN ---
Progress Note (short form) - Note Progress Note: surgery chart reviewed. 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 Unlikely to also have acute cholecystitis and if clinical concern could have HIDA and perc drainage per IR service. The primary challenge/ concern of the GI service is the managing the bile duct in the setting of plavix , duodenal stricture, and no cardiac grass farm laborer. Once bile duct is cleared pt would benifit from cholecystecotmy to prevent recurrence but the risk of holding plavix therapy in the first year of a stent for this non-emergent prophylactic surgery is unlikely warranted with the high stent occlusion risk and especially in a hospital without emergent cardiac intervention capability.
[2019-02-09] MEDS: LATANOPROST 0.005% OPHTH SOLN 2.5ML BOTTLE OU SCH (21:42)
[2019-02-10] MEDS ORDERED: DEXTROSE 5%-WATER - 50 ML IVPB ONE ×3 (00:51→16:57)
[2019-02-10] MEDS ORDERED: PIPERACILLIN/TAZOBACTAM 3.375 GM VIAL IVPB ONE ×3 (00:51→16:56)
[2019-02-10] MEDS ORDERED: PIPERACILLIN/TAZOB 3.375 GM 3.375 GM in DEXTROSE 5%-WATER - 50 ML IVPB SCH (02:00)
[2019-02-10] MEDS: PIPERACILLIN/TAZOB 3.375 GM 3.375 GM in DEXTROSE 5%-WATER - 50 ML IVPB SCH ×3 (02:09→17:25)
[2019-02-10 08:35] LABS: INR 1.19 (0.83-1.09); PROTHROMBIN TIME (PATIENT) 14.1 SEC (9.7-13.0)
[2019-02-10 08:43] LABS: BASO % 0.4 % (0-2.0); EOS % 2.6 % (0-4.5); HEMATOCRIT 36.9 % (32.4-45.2); HEMOGLOBIN 12.4 GM/dL (10.7-15.3); LYMPH % 14.8 % (8-40); MCH 29.9 pg (25.7-33.7); MCHC 33.6 g/dl (32.0-36.0); MEAN CELL VOLUME 88.9 fl (80-96); MEAN PLT VOLUME 9.2 fl (7.5-11.1); MONO % 11.6 % (3.8-10.2); NEUT % 70.6 % (42.8-82.8); PLATELET COUNT 193 K/MM3 (134-434); RBC 4.15 M/mm3 (3.60-5.2); RDW 13.7 % (11.6-15.6); WHITE BLOOD COUNT 6.2 K/mm3 (4.0-10.0)
[2019-02-10 08:44] LABS: AMYLASE 46 U/L (25-115); LIPASE 187 U/L (73-393)
[2019-02-10 08:48] LABS: ALBUMIN 3.1 g/dl (3.4-5.0); BLOOD UREA NITROGEN 14.4 mg/dL (7-18); CALCIUM 8.9 mg/dL (8.5-10.1); CREATININE 0.8 mg/dL (0.55-1.3); POTASSIUM 3.8 mmol/L (3.5-5.1); TOT PROT 5.8 g/dl (6.4-8.2)
[2019-02-10 08:49] LABS: BILIRUBIN,TOTAL 1.4 mg/dL (0.2-1)
[2019-02-10] MEDS: PANTOPRAZOLE SODIUM 40 MG VIAL IVPB SCH (10:05)
[2019-02-10] MEDS: ASPIRIN COATED 81 MG TABLET.EC PO SCH (10:06)
[2019-02-10] MEDS: metoPROLOL SUCCINATE 25 MG TAB.SR.24H (FP) PO SCH (10:06)
[2019-02-10] MEDS: HEPARIN NA (PORCINE) 5,000 UNITS/ML 1ML VIAL SQ SCH ×2 (10:09→21:58)
[2019-02-10] MEDS: TIMOLOL 0.5% OPHTHALMIC SOL 5 ML BOTTLE OD SCH (10:10)
[2019-02-10] MEDS ORDERED: oxyCODONE HCL 5 MG TABLET PO PRN (10:57)
--- NOTE | 2019-02-10 10:58 | PN ---
Progress Note, Physician Chief Complaint: in bed feels better awaiting GI and surgery input afebrile no pain labs tests and consults d/w pt pt is worried about her animals and plants from home, she would like to go home "for a couple of hours" then come back; d/w pt this is not advisable and is not H policy - Current Medication List Current Medications: Active Medications Aspirin (Ecotrin -) 81 mg PO DAILY [facility] Last Admin: 02/10/19 10:06 Dose: 81 mg Heparin Sodium (Porcine) (Heparin -) 5,000 unit SQ BID [facility] Last Admin: 02/10/19 10:09 Dose: 5,000 unit Metronidazole (Flagyl 500mg Premixed Ivpb -) 500 mg in 100 mls @ 100 mls/hr IVPB Q8H-IV [facility] Last Admin: 02/10/19 10:05 Dose: 100 mls/hr Sodium Chloride (Normal Saline -) 1,000 mls @ 100 mls/hr IV ASDIR [facility] Last Admin: 02/09/19 05:27 Dose: 100 mls/hr Piperacillin Sod/Tazobactam (Sod 3.375 gm/ Dextrose) 50 mls @ 100 mls/hr IVPB Q8H-IV [facility]; Protocol Last Admin: 02/10/19 10:06 Dose: 100 mls/hr Latanoprost (Xalatan 0.005% Eye Drops -) 1 drop OU HS [facility] Last Admin: 02/09/19 21:42 Dose: 1 drop Metoprolol Succinate (Toprol Xl -) 12.5 mg PO DAILY [facility] Last Admin: 02/10/19 10:06 Dose: 12.5 mg Ondansetron HCl (Zofran Injection) 8 mg IVPB DAILY PRN PRN Reason: NAUSEA AND/OR VOMITING Oxycodone HCl (Roxicodone -) 2.5 mg PO Q6H PRN PRN Reason: PAIN LEVEL 6-10 Pantoprazole Sodium (Protonix Iv) 40 mg IVPB DAILY [facility] Last Admin: 02/10/19 10:05 Dose: 40 mg Timolol Maleate (Timoptic 0.5%) 1 drop OD DAILY [facility] Last Admin: 02/10/19 10:10 Dose: 1 drop - Objective Vital Signs: Vital Signs Temperature 98.5 F 02/10/19 05:57 Pulse Rate 60 02/10/19 05:57 Respiratory Rate 20 02/10/19 05:57 Blood Pressure 105/56 L 02/10/19 05:57 O2 Sat by Pulse Oximetry (%) 95 02/09/19 21:00 Constitutional: Yes: No Distress, Calm Eyes: Yes: Conjunctiva Clear HENT: Yes: Atraumatic Neck: Yes: Supple Cardiovascular: Yes: Regular Rate and Rhythm Respiratory: Yes: CTA Bilaterally Gastrointestinal: Yes: Soft. No: Tenderness Genitourinary: No: Hematuria Musculoskeletal: No: Joint Stiffness, Joint Swelling Extremities: No: Cold, Cool, Cyanosis Edema: No Integumentary: No: Rash, Venous Stasis Changes Neurological: Yes: WNL, Alert, Oriented ...Motor Strength: WNL Psychiatric: Yes: WNL, Alert, Oriented. No: Agitated, Suicidal Ideation Labs: CBC, BMP 02/10/19 07:14 02/10/19 07:14 INR, PTT INR 1.19 (0.83-1.09) H 02/10/19 07:14 - ....Imaging Other: Report Reviewed Assessment/Plan Ms. Paul is a 73 y/o female with extensive PMH including HTN, HLD, cardiac stents May 2018, COPD, García's esophagus, duodenal stricture and gallstones admitted with biliary colic / r/o cholecystitis vs cholangitis NPO, IVF, IV antibiotics pain meds prn pt prefers oxycodone than morphine zofran prn f/u LFTs will need ERCP eventually but duodenal stricture might be a problem, will d/w dr Sanders d/w surgery dr Valiente if unable to do ERCP here consider transfer to tertiary center IV ATB/ ID; f/u cultures; cardiology eval: for coronary stent 8 months ago on ASA and plavix falls PFX prognosis guarded; d/w staff and d/w pt all the above t time 35 min
[2019-02-10] MEDS: SODIUM CHLORIDE 1,000 ML IV SCH (17:26)
--- NOTE | 2019-02-10 17:51 | PN ---
Progress Note, Physician History of Present Illness: AWAKE, ALERT C/O HEADACHE NO C/O ABDOMINAL PAIN NO N/V NO FEVER/ CHILLS AFEBRILE WBC IMPROVED BC (-) - Current Medication List Current Medications: Active Medications Aspirin (Ecotrin -) 81 mg PO DAILY [facility] Last Admin: 02/10/19 10:06 Dose: 81 mg Heparin Sodium (Porcine) (Heparin -) 5,000 unit SQ BID [facility] Last Admin: 02/10/19 10:09 Dose: 5,000 unit Metronidazole (Flagyl 500mg Premixed Ivpb -) 500 mg in 100 mls @ 100 mls/hr IVPB Q8H-IV [facility] Last Admin: 02/10/19 17:25 Dose: 100 mls/hr Sodium Chloride (Normal Saline -) 1,000 mls @ 100 mls/hr IV ASDIR [facility] Last Admin: 02/10/19 17:26 Dose: 100 mls/hr Piperacillin Sod/Tazobactam (Sod 3.375 gm/ Dextrose) 50 mls @ 100 mls/hr IVPB Q8H-IV [facility]; Protocol Last Admin: 02/10/19 17:25 Dose: 100 mls/hr Latanoprost (Xalatan 0.005% Eye Drops -) 1 drop OU HS [facility] Last Admin: 02/09/19 21:42 Dose: 1 drop Metoprolol Succinate (Toprol Xl -) 12.5 mg PO DAILY [facility] Last Admin: 02/10/19 10:06 Dose: 12.5 mg Ondansetron HCl (Zofran Injection) 8 mg IVPB DAILY PRN PRN Reason: NAUSEA AND/OR VOMITING Oxycodone HCl (Roxicodone -) 2.5 mg PO Q6H PRN PRN Reason: PAIN LEVEL 6-10 Pantoprazole Sodium (Protonix Iv) 40 mg IVPB DAILY [facility] Last Admin: 02/10/19 10:05 Dose: 40 mg Timolol Maleate (Timoptic 0.5%) 1 drop OD DAILY [facility] Last Admin: 02/10/19 10:10 Dose: 1 drop - Objective Vital Signs: Vital Signs Temperature 98.5 F 02/10/19 05:57 Pulse Rate 61 02/10/19 10:00 Respiratory Rate 20 02/10/19 10:00 Blood Pressure 128/71 02/10/19 10:00 O2 Sat by Pulse Oximetry (%) 96 08/05/19 09:00 Constitutional: Yes: No Distress Cardiovascular: Yes: Regular Rate and Rhythm, S1, S2 Respiratory: Yes: CTA Bilaterally Gastrointestinal: Yes: Normal Bowel Sounds, Soft (NO EPIGASTRIC/ RUQ TENDERNESS) Edema: No Labs: CBC, BMP 02/10/19 07:14 02/10/19 07:14 INR, PTT INR 1.19 (0.83-1.09) H 02/10/19 07:14 Assessment/Plan CHOLECYSTITIS CHOLELITHIASIS ELEVATED LFTS IMPROVED CONTINUE EMPIRIC ZOSYN/ FLAGYL
--- NOTE | 2019-02-10 18:09 | PN ---
Progress Note, Physician Chief Complaint: A&Ox3; sitting up at bedside; c/o mild lower back pain, at times extending to either flank. History of Present Illness: The patient is a 73 year old white female, with a significant PMH of CAD (s/p OM1 DEStent 05/2019), HTN, HLD, who presents to the emergency department for evaluation of 1 day of diffuse abdominal pain and several episodes of vomiting. The patient denies chest pain, shortness of breath, headache and dizziness. Denies fever, chills, diarrhea and constipation. Denies dysuria, frequency, urgency and hematuria. Allergies: NKA - Current Medication List Current Medications: Active Medications Aspirin (Ecotrin -) 81 mg PO DAILY [facility] Last Admin: 02/10/19 10:06 Dose: 81 mg Heparin Sodium (Porcine) (Heparin -) 5,000 unit SQ BID [facility] Last Admin: 02/10/19 10:09 Dose: 5,000 unit Metronidazole (Flagyl 500mg Premixed Ivpb -) 500 mg in 100 mls @ 100 mls/hr IVPB Q8H-IV [facility] Last Admin: 02/10/19 17:25 Dose: 100 mls/hr Sodium Chloride (Normal Saline -) 1,000 mls @ 100 mls/hr IV ASDIR [facility] Last Admin: 02/10/19 17:26 Dose: 100 mls/hr Piperacillin Sod/Tazobactam (Sod 3.375 gm/ Dextrose) 50 mls @ 100 mls/hr IVPB Q8H-IV [facility]; Protocol Last Admin: 02/10/19 17:25 Dose: 100 mls/hr Latanoprost (Xalatan 0.005% Eye Drops -) 1 drop OU HS [facility] Last Admin: 02/09/19 21:42 Dose: 1 drop Metoprolol Succinate (Toprol Xl -) 12.5 mg PO DAILY [facility] Last Admin: 02/10/19 10:06 Dose: 12.5 mg Ondansetron HCl (Zofran Injection) 8 mg IVPB DAILY PRN PRN Reason: NAUSEA AND/OR VOMITING Oxycodone HCl (Roxicodone -) 2.5 mg PO Q6H PRN PRN Reason: PAIN LEVEL 6-10 Last Admin: 02/10/19 17:51 Dose: 2.5 mg Pantoprazole Sodium (Protonix Iv) 40 mg IVPB DAILY [facility] Last Admin: 02/10/19 10:05 Dose: 40 mg Timolol Maleate (Timoptic 0.5%) 1 drop OD DAILY [facility] Last Admin: 02/10/19 10:10 Dose: 1 drop - Objective Vital Signs: Vital Signs Temperature 98.5 F 02/10/19 05:57 Pulse Rate 61 02/10/19 10:00 Respiratory Rate 20 02/10/19 10:00 Blood Pressure 128/71 02/10/19 10:00 O2 Sat by Pulse Oximetry (%) 96 02/10/19 09:00 Constitutional: Yes: Anxious Eyes: Yes: WNL HENT: Yes: WNL Cardiovascular: Yes: S1, S2 Respiratory: Yes: Regular Gastrointestinal: Yes: Soft. No: Tenderness ...Rectal Exam: Yes: Deferred Genitourinary: No: Anuria Breast(s): Yes: WNL Musculoskeletal: Yes: Back Pain Extremities: Yes: WNL Edema: No Peripheral Pulses WNL: Yes Integumentary: Yes: WNL Neurological: Yes: Alert, Oriented Psychiatric: Yes: WNL Labs: CBC, BMP 02/10/19 07:14 02/10/19 07:14 INR, PTT INR 1.19 (0.83-1.09) H 02/10/19 07:14 Abnormal Lab Results 02/10/19 02/10/19 02/10/19 07:14 07:14 07:14 Monocytes % 11.6 H PT with INR 14.10 H INR 1.19 H Chloride 112 H Anion Gap 7 L Random Glucose 63 L Total Bilirubin 1.4 H D Direct Bilirubin 1.0 H AST 172 H ALT 216 H Alkaline Phosphatase 233 H Total Protein 5.8 L Albumin 3.1 L Abnormal Lab Results 02/10/19 02/10/19 02/10/19 07:14 07:14 07:14 Monocytes % 11.6 H PT with INR 14.10 H INR 1.19 H Chloride 112 H Anion Gap 7 L Random Glucose 63 L Total Bilirubin 1.4 H D Direct Bilirubin 1.0 H AST 172 H ALT 216 H Alkaline Phosphatase 233 H Total Protein 5.8 L Albumin 3.1 L - ....Imaging Chest X-ray: Image Reviewed (no acute pathology) EKG: Image Reviewed (NSR; APCs; LAE) Problem List - Problems (1) Biliary colic Code(s): K80.50 - CALCULUS OF BILE DUCT W/O CHOLANGITIS OR CHOLECYST W/O OBST (2) Cholecystitis Code(s): K81.9 - CHOLECYSTITIS, UNSPECIFIED (3) HTN (hypertension) Assessment/Plan: On metoprolol ER. Code(s): I10 - ESSENTIAL (PRIMARY) HYPERTENSION Qualifiers: Hypertension type: essential hypertension Qualified Code(s): I10 - Essential (primary) hypertension (4) History of coronary artery stent placement Assessment/Plan: If GI surgery is to be performed this admission, would hold clopidogrel, restarting it as soon as possible after surgery. If it is decided to postpone the surgery, please restart clopidogrel. Ideally, the medication should be continued uninterrupted for one year post-coronary stent (i.e. until 05/2019). Code(s): Z95.5 - PRESENCE OF CORONARY ANGIOPLASTY IMPLANT AND GRAFT (5) Hypercholesterolemia Code(s): E78.00 - PURE HYPERCHOLESTEROLEMIA, UNSPECIFIED
--- NOTE | 2019-02-10 19:02 | PN ---
Progress Note (short form) - Note Progress Note: surgery pt seen and examined. please see below. lfts rapidly improving. GI plans are to avoid ercp if labs cont to improve with plans for outpt cholecystectomy at [facility] where she has relationships with physicians and had her stent placed. This is apparently a new type of stent and stopping Plavix after 6 months is possible but not ideal. Pt can also consider elective cholecystectomy after may at [facility] but she is currently more comfortable at [place]. abd- soft, nt, clinically no acute cholecystitis surgery chart reviewed. 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 Unlikely to also have acute cholecystitis and if clinical concern could have HIDA and perc drainage per IR service. The primary challenge/ concern of the GI service is the managing the bile duct in the setting of plavix , duodenal stricture, and no cardiac laboratory clerk. Once bile duct is cleared pt would benifit from cholecystecotmy to prevent recurrence but the risk of holding plavix therapy in the first year of a stent for this non-emergent prophylactic surgery is unlikely warranted with the high stent occlusion risk and especially in a hospital without emergent cardiac intervention capability.
--- NOTE | 2019-02-10 20:42 | CONS ---
DATE OF CONSULTATION: 02/10/2019 REASON FOR CONSULTATION: Choledocholithiasis. REQUESTING PHYSICIAN: Ale Billings MD This is an inpatient consultation. BRIEF HISTORY: This is a 73-year-old female with history of coronary artery disease with a stent placed in May, currently on Plavix which the computer record states she last took on February 09. The patient believes she last took it on February 08. 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 She admits to using cocaine as well and presented to [facility] with a clinical common bile duct obstruction. CAT scan, ultrasound as well as MRI all suggested a dilated bile duct and could not exclude stones seen within the bowel duct. She had stones noted in her gallbladder as well with mild inflammatory changes. Her initial liver function tests were markedly elevated with a bilirubin of 4.6, a direct bilirubin of 3.8, an AST of 366, an ALT of 339, and alkaline phosphatase of 282. Since her presentation, her liver function tests today dropped. Her bilirubin is now down to 1.4. Her AST is 172. Her ALT is 216. Her alkaline phosphatase is 233. Her white blood cell count was initially 13,000. Today, it is normal. She is currently pain free. PAST MEDICAL HISTORY: As in HPI. In addition, she has hypertension, hyperlipidemia, García esophagus, COPD, chronic back pain. SOCIAL HISTORY: Significant for quitting tobacco. It is positive for cocaine and negative for alcohol. REVIEW OF HOME MEDICATIONS: Includes Plavix, garlic, Protonix, metoprolol, chondroitin, oxycodone, Timolol. FAMILY HISTORY: Noncontributory. PAST SURGICAL HISTORY: Includes the stent. Negative for any abdominal surgeries. REVIEW OF SYSTEMS: General: Denies fatigue or malaise. Cardiac: Denies chest pain or palpitations. Respiratory: Denies shortness of breath or wheeze. Gastrointestinal: As in HPI. Currently, no symptoms. Genitourinary: Denies dysuria. Musculoskeletal: Denies joint pain and joint swelling. Psychiatric: Denies anxiety, depression, hearing voices. PHYSICAL EXAMINATION: General: This is a well-developed, well-nourished, 73-year-old female in no distress. Vital Signs: She is afebrile, has been since admission. Her vital signs are stable. HEENT: Her head is normocephalic. Her sclerae are anicteric. Neck: Supple. Chest: Clear. Abdomen: Soft, nontender. She is obese. She has no surgical scars. No obvious hernias. Extremities: Have edema. LABORATORY DATA: As stated in the HPI. ASSESSMENT: This 73-year-old female presents with a dilated common bile duct, elevated liver function tests, noted to have gallstones in her gallbladder. Clinically, she has choledocholithiasis and possibly has passed a stone. Unfortunately, she is unable to undergo a simple ERCP because of a duodenal stricture and the fact that she is on Plavix. Plavix is currently being held. Unfortunately, with a new stent, it is ideal to stay on Plavix for 1 year, although apparently with newer stents, it is possible to stop it after 6 months. Patient would have some risk of occluding her stent, and there is some concern by me as well as the patient that if her stent occludes, there is no cardiac catheterization lab at [facility] to emergently address an issue. The patient had her stents placed at [place] and has relationships with physicians down there and states that if she has any surgery, she wishes it to be done at [facility]. At this point, the patient appears well. If no ERCP is done and the patient's plans appear to be for discharge and elective surgery at [facility]. If she wishes to wait until May, after a full year of Plavix therapy, at that point, would be amenable to doing her gallbladder surgery at [facility]. However, the patient currently is very comfortable at [place] and wishes to have any major surgery done there. At this point, further management per the GI service. Clinically, I do not believe she has acute cholecystitis and that there is no indication for percutaneous drainage. I discussed the case in detail with Dr. Billings. DO RONNY LEE/[id number]
--- NOTE | 2019-02-10 21:17 | PN.GI ---
GI Progress Note Subjective: GI NOte: I saw Rosemary about noontime today but could not document until now. I explained that I canceled her ERCP as her LFT improvement suggested that her stone had passed as did her MRCP. I explained that ideally we should wait until her Plavix can be more safely stopped in May to do her cholecystectomy. Given this I will resume her Plavix. I explained that her duodenal stricture may preclude access to the ampulla by ERCP and that this may require dilations or an expandable duodenal stent insertion. Given the complexity of her situation I advised a tertiary care center. She has opted for [facility] as she had her coronary stent inserted there. - Objective Vital Signs: Vital Signs Temperature 98.5 F 02/10/19 05:57 Pulse Rate 61 02/10/19 10:00 Respiratory Rate 20 02/10/19 10:00 Blood Pressure 128/71 02/10/19 10:00 O2 Sat by Pulse Oximetry (%) 96 02/10/19 09:00 Laboratory Tests 02/08/19 02/08/19 02/09/19 20:10 20:10 06:25 WBC 13.7 H Total Bilirubin 3.6 H 4.6 H Direct Bilirubin 3.8 H AST 471 H 366 H ALT 348 H 339 H Alkaline Phosphatase 301 H 282 H Total Amylase Lipase 02/10/19 02/10/19 02/10/19 07:14 07:14 07:14 WBC 6.2 Total Bilirubin 1.4 H D Direct Bilirubin 1.0 H AST 172 H ALT 216 H Alkaline Phosphatase 233 H Total Amylase 46 Lipase 187 Constitutional: Calm ...Auscultate: Yes: Normoactive Bowel Sounds ...Palpate: Yes: Soft, Other (nontender) Labs: CBC, BMP 02/10/19 07:14 02/10/19 07:14 INR, PTT INR 1.19 (0.83-1.09) H 02/10/19 07:14 Assessment/Plan Impression: - Resolved choldecholithiasis - Cholelithiasis - Duodenal stricture Plan: -- If LFTs continue to improve and cultures are negative Reynaldo can be discharged. We have mutually agreed that she symptoms recur she should go to [facility] or get transferred there from our ER given the complexity of her clinical situation -- I have resumed her Plavix tonight -- Will advance diet as her clinical situation permits Problem List - Problems (1) Choledocholithiasis with obstruction Code(s): K80.51 - CALCULUS OF BILE DUCT W/O CHOLANGITIS OR CHOLECYST W OBST (2) Duodenal stricture Code(s): K31.5 - OBSTRUCTION OF DUODENUM (3) Biliary colic Code(s): K80.50 - CALCULUS OF BILE DUCT W/O CHOLANGITIS OR CHOLECYST W/O OBST (4) CAD (coronary artery disease) Code(s): I25.10 - ATHSCL HEART DISEASE OF [place] CORONARY ARTERY W/O ANG PCTRS (5) History of coronary artery stent placement Code(s): Z95.5 - PRESENCE OF CORONARY ANGIOPLASTY IMPLANT AND GRAFT (6) Diverticulosis large intestine w/o perforation or abscess w/o bleeding Code(s): K57.30 - DVRTCLOS OF LG INT W/O PERFORATION OR ABSCESS W/O BLEEDING
[2019-02-10] MEDS ORDERED: PT OWN MED DRAWER 7, Y5N ONE ×2 (21:55→23:32)
[2019-02-10] MEDS: CLOPIDOGREL BISULFATE 75 MG TABLET (FP) PO SCH (21:58)
[2019-02-10] MEDS: LATANOPROST 0.005% OPHTH SOLN 2.5ML BOTTLE OU SCH (22:00)
[2019-02-10] MEDS ORDERED: ATORVASTATIN CA 40 MG TABLET (FP) PO SCH (22:00)
[2019-02-10] MEDS: TIMOLOL 0.5% OPHTHALMIC SOL 5 ML BOTTLE OU SCH (23:32)
[2019-02-11] MEDS ORDERED: DEXTROSE 5%-WATER - 50 ML IVPB ONE ×2 (01:37→08:18)
[2019-02-11] MEDS ORDERED: PIPERACILLIN/TAZOBACTAM 3.375 GM VIAL IVPB ONE ×2 (01:37→08:18)
[2019-02-11] MEDS: PIPERACILLIN/TAZOB 3.375 GM 3.375 GM in DEXTROSE 5%-WATER - 50 ML IVPB SCH ×2 (01:42→09:24)
[2019-02-11 03:36] VITALS: TEMP 98.5
[2019-02-11] MEDS: SODIUM CHLORIDE 1,000 ML IV SCH (06:27)
[2019-02-11 08:57] LABS: HEMATOCRIT 36.1 % (32.4-45.2)
[2019-02-11 09:08] LABS: BASO % 0.5 % (0-2.0); EOS % 7.1 % (0-4.5); HEMOGLOBIN 12.1 GM/dL (10.7-15.3); LYMPH % 21.2 % (8-40); MCH 29.9 pg (25.7-33.7); MCHC 33.5 g/dl (32.0-36.0); MEAN PLT VOLUME 8.9 fl (7.5-11.1); MONO % 14.5 % (3.8-10.2); NEUT % 56.7 % (42.8-82.8); PLATELET COUNT 210 K/MM3 (134-434); RBC 4.05 M/mm3 (3.60-5.2); RDW 13.9 % (11.6-15.6)
[2019-02-11] MEDS: metoPROLOL SUCCINATE 25 MG TAB.SR.24H (FP) PO SCH (09:22)
[2019-02-11] MEDS: ASPIRIN COATED 81 MG TABLET.EC PO SCH (09:22)
[2019-02-11] MEDS: CLOPIDOGREL BISULFATE 75 MG TABLET (FP) PO SCH (09:22)
[2019-02-11] MEDS: PANTOPRAZOLE SODIUM 40 MG VIAL IVPB SCH (09:23)
[2019-02-11 09:32] LABS: BILIRUBIN,DIRECT 0.5 mg/dL (0.0-0.2); BILIRUBIN,TOTAL 0.8 mg/dL (0.2-1); TOT PROT 5.8 g/dl (6.4-8.2)
[2019-02-11] MEDS: HEPARIN NA (PORCINE) 5,000 UNITS/ML 1ML VIAL SQ SCH (09:35)
[2019-02-11] MEDS: TIMOLOL 0.5% OPHTHALMIC SOL 5 ML BOTTLE OU SCH (09:35)
[2019-02-11] MEDS ORDERED: LACTOBACILLUS ACIDOPHILUS 1 TABLET PO SCH (10:00)
--- NOTE | 2019-02-11 11:21 | DS ---
Physical Examination Vital Signs: Vital Signs Temperature 98.5 F 02/11/19 05:55 Pulse Rate 57 L 02/11/19 05:55 Respiratory Rate 20 02/11/19 05:55 Blood Pressure 130/83 02/11/19 05:55 O2 Sat by Pulse Oximetry (%) 97 02/10/19 21:00 Findings/Remarks: in bed awake alert NAD VSS afebrile no c/o feels well, wants to go home; cultures negative to date LFTs better d/w GI and ID and cardiology; will DC home on po Atb X 1 WEEK; resume ASA& Plavix scripts ordered f/u as advised t time 45 min Constitutional: Yes: No Distress, Calm Eyes: Yes: Conjunctiva Clear HENT: Yes: Atraumatic Neck: Yes: Supple Cardiovascular: Yes: Regular Rate and Rhythm Respiratory: Yes: CTA Bilaterally Gastrointestinal: Yes: Soft. No: Tenderness Renal/: No: CVA Tenderness - Left, CVA Tenderness - Right, Hematuria Musculoskeletal: No: Joint Stiffness, Joint Swelling Extremities: No: Cold, Cool, Cyanosis Edema: No Integumentary: No: Rash, Venous Stasis Changes Neurological: Yes: WNL, Alert, Oriented ...Motor Strength: WNL Psychiatric: Yes: WNL, Alert, Oriented. No: Agitated, Suicidal Ideation Labs: CBC, BMP 02/11/19 08:41 02/10/19 07:14 Discharge Summary Reason For Visit: ABDOMINAL PAIN Current Active Problems Biliary colic (Acute) CAD (coronary artery disease) (Acute) Cholangitis (Acute) Cholecystitis (Acute) Choledocholithiasis with obstruction (Acute) Cholelithiasis (Acute) Diverticulosis large intestine w/o perforation or abscess w/o bleeding (Acute) Duodenal stricture (Acute) HTN (hypertension) (Acute) History of coronary artery stent placement (Acute) Hypercholesterolemia (Acute) Procedures: Principal: 73 YOF ASHD s/p coronary stent May 2018, duodenal stricture, Gallstones admitted with abdominal pain and high LFTs, cholestasis; Other Procedures: seen by GI, surgery and cardiology; plavix held in anticipation of surgery; pt received IVF IV antibiotics; pt evaluated for ERCP ( might be problematic b/o duodenal stricture) and cholecystectomy Hospital Course: luckily she improved with conservative treatment; ideally should wait for 1 year if possible after stent placement (May) then to have gallbladder surgery; given her cardiac and GI history she was advised to go to [facility] for further management of her biliary surgery and she agreed. to f/u with PCP, GI< surgery and cardiology; to take meds as advised; po ATB x 1 week; restart plavix (for total 1 year after stent) and baby ASA po daily; RTER if worse or recurrent c/o - d/w pt all the above Condition: Improved - Instructions Diet, Activity, Other Instructions: f/u PCP, GI and cardiology in 1-4 weeks after DC home; f/u surgery in 1-2 months; RTER if worse or recurrent c/o take meds as advised; po antibiotics x 1 week; resume plavix and ASA as advised; call PCP if any questions Referrals: Ale Billings [Staff Physician] - Darnell Sanders MD [Staff Physician] - Forest Albright MD [Staff Physician] - Savage Valiente MD [Staff Physician] - Disposition: VNS/HOME HEALTH CARE - Home Medications Comprehensive Discharge Medication List: Ambulatory Orders Bimatoprost [Lumigan] 1 drop IO HS 09/19/17 Timolol 0.5% [Timoptic 0.5%] 1 drop OS BID 09/19/17 Acetaminophen [Tylenol] 650 mg PO DAILY PRN #0 tab 02/11/19 Aspirin Coated [Ecotrin -] 81 mg PO DAILY tablet.ec 02/11/19 Clopidogrel Bisulfate [Clopidogrel] 75 mg PO DAILY #0 tab 02/11/19 Lactobacillus Acidophilus [Bacid -] 1 tab PO DAILY tab 02/11/19 Metoprolol Succinate 12.5 mg PO DAILY #0 tab 02/11/19 Oxycodone HCl/Acetaminophen [Percocet 5-325 mg Tablet] 0.5 tab PO BID PRN #0 tab MDD 5 mg 02/11/19 Pantoprazole Sodium [Protonix] 40 mg PO HS #0 tab 02/11/19
[2019-02-11 11:29] VITALS: BP 141/80; PULSE 53
[2019-02-11] MEDS ORDERED: AMOX TR/POT CLAV 875MG/125MG TABLETS (FP) PO SCH (17:30)
== END 2019-02-11 16:28 | disposition home health service (06) | DRG 445 ==
LOC: JER 18:14 → JERBED 23:42 → J6S 02-09 04:21
PROVIDERS: ADMIT Internal Medicine; ATTEND Internal Medicine
DX: K80.71 Calculus of gallbladder and bile duct without cholecystitis with obstruction (principal); J98.11 Atelectasis; K31.5 Obstruction of duodenum; I10 Essential (primary) hypertension; E78.5 Hyperlipidemia, unspecified; K22.70 Barrett's esophagus without dysplasia; N28.1 Cyst of kidney, acquired; M54.9 Dorsalgia, unspecified; M41.9 Scoliosis, unspecified; K80.50 Calculus of bile duct without cholangitis or cholecystitis without obstruction; K57.30 Diverticulosis of large intestine without perforation or abscess without bleeding; F14.10 Cocaine abuse, uncomplicated; I25.10 Atherosclerotic heart disease of native coronary artery without angina pectoris; Z95.5 Presence of coronary angioplasty implant and graft; Z87.891 Personal history of nicotine dependence; Z96.643 Presence of artificial hip joint, bilateral
CPT/HCPCS: 36415; 71046-TC-FY; 74177-TC; 74181-TC; 76705-TC; 80048; 80053; 80076; 81003; 82150; 82550; 83690; 84484; 85025; 85610; 85730; 86140; 86301; 87040; 87086; 93005; 93010; 99283-25; J1644; J7030

== ENCOUNTER 2019-02-23 23:54 | Inpatient (IN) | payer OTHER, MEDICARE ==
--- NOTE | 2019-02-24 01:02 | PDOC ---
History of Present Illness <HermelindoDeana - Last Filed: 02/24/19 03:33> - General History Source: Patient Exam Limitations: No Limitations <Chace Delaney - Last Filed: 02/24/19 08:52> - General Chief Complaint: Back Pain Stated Complaint: BACK PAIN Time Seen by Provider: 02/24/19 00:39 Past History <Deana Casarez - Last Filed: 02/24/19 03:33> - Past Medical History Anemia: No Asthma: No Cancer: No Cardiac Disorders: Yes (PALPITATIONS) CVA: No COPD: No CHF: No Dementia: No Diabetes: No GI Disorders: Yes (DIVERTICULOSIS,SHEEHAN'S ESOPHAGUS, DUODENAL ULCER WITH STRICTURE,) Disorders: No HTN: No Hypercholesterolemia: No Liver Disease: No Seizures: No Thyroid Disease: No - Surgical History Abdominal Surgery: No Appendectomy: No Cardiac Surgery: No Cholecystectomy: No Lung Surgery: No Neurologic Surgery: No Orthopedic Surgery: Yes (RIGHT GANGLION EXCISION) - Suicide/Smoking/Psychosocial Hx Smoking History: Never smoked Have you smoked in the past 12 months: No If you are a former smoker, when did you quit?: 2006 Information on smoking cessation initiated: No Hx Alcohol Use: No Drug/Substance Use Hx: No Substance Use Type: None Hx Substance Use Treatment: No <KasandraChace carter - Last Filed: 02/24/19 08:52> - Past Medical History Allergies/Adverse Reactions: Allergies Allergy/AdvReac Type Severity Reaction Status Date / Time No Known Allergies Allergy Verified 02/24/19 00:25 Home Medications: Ambulatory Orders Bimatoprost [Lumigan] 1 drop IO HS 09/19/17 Timolol 0.5% [Timoptic 0.5%] 1 drop OS BID 09/19/17 Acetaminophen [Tylenol] 650 mg PO DAILY PRN #0 tab 02/11/19 Aspirin Coated [Ecotrin -] 81 mg PO DAILY tablet.ec 02/11/19 Clopidogrel Bisulfate [Clopidogrel] 75 mg PO DAILY #0 tab 02/11/19 Metoprolol Succinate 12.5 mg PO DAILY #0 tab 02/11/19 Oxycodone HCl/Acetaminophen [Percocet 5-325 mg Tablet] 0.5 tab PO BID PRN #0 tab MDD 5 mg 02/11/19 Pantoprazole Sodium [Protonix] 40 mg PO HS #0 tab 02/11/19 Atorvastatin Ca [Lipitor] 40 mg PO HS 02/24/19 Review of Systems - Review of Systems Able to Perform ROS?: Yes Comments:: 02/24/19 ROS: GENERAL/CONSTITUTIONAL: No fever or chills. No weakness. HEAD, EYES, EARS, NOSE AND THROAT: No change in vision. No ear pain or discharge. No sore throat. CARDIOVASCULAR: No chest pain or shortness of breath RESPIRATORY: No cough, wheezing, or hemoptysis. GASTROINTESTINAL: Abdominal bloating, abdominal pain. No nausea, vomiting, diarrhea or constipation. GENITOURINARY: No dysuria, frequency, or change in urination. MUSCULOSKELETAL: Back pain. No joint or muscle swelling or pain. No neck pain. SKIN: No rash NEUROLOGIC: No headache, vertigo, loss of consciousness, or change in strength/ sensation. ENDOCRINE: No increased thirst. No abnormal weight change HEMATOLOGIC/LYMPHATIC: No anemia, easy bleeding, or history of blood clots. ALLERGIC/IMMUNOLOGIC: No hives or skin allergy. <Chace Delaney - Last Filed: 02/24/19 08:52> *Physical Exam - Vital Signs Last Vital Signs Temp Pulse Resp BP Pulse Ox 98.8 F 71 16 121/66 96 02/24/19 00:00 02/24/19 00:00 02/24/19 00:00 02/24/19 00:00 02/24/19 00:00 <Deana Casarez - Last Filed: 02/24/19 03:33> - Vital Signs Last Vital Signs Temp Pulse Resp BP Pulse Ox 98.8 F 71 16 121/66 96 02/24/19 00:00 02/24/19 00:00 02/24/19 00:00 02/24/19 00:00 02/24/19 00:00 - Physical Exam Comments: 02/24/19 PE: GENERAL: Awake, alert, and fully oriented. Leaning over in hospital bed, grimacing in pain. HEAD: No signs of trauma, normocephalic, atraumatic EYES: PERRLA, EOMI, sclera anicteric, conjunctiva clear ENT: Auricles normal inspection, hearing grossly normal, nares patent, oropharynx clear without exudates. Moist mucosa NECK: Normal ROM, supple, no lymphadenopathy, JVD, or masses LUNGS: No distress, speaks full sentences, clear to auscultation bilaterally HEART: Regular rate and rhythm, normal S1 and S2, no murmurs, rubs or gallops, peripheral pulses normal and equal bilaterally. ABDOMEN: Mild R CVA tenderness. Soft, nontender, normoactive bowel sounds. No guarding, no rebound. No masses EXTREMITIES : Normal inspection, Normal range of motion, no edema. No clubbing or cyanosis. NEUROLOGICAL: Cranial nerves II through XII grossly intact. Normal speech, normal gait, no focal sensorimotor deficits SKIN: Warm, Dry, normal turgor, no rashes or lesions noted <Chace Delaney - Last Filed: 02/24/19 08:52> ED Treatment Course - LABORATORY CBC & Chemistry Diagram: 02/24/19 01:47 02/24/19 01:47 - ADDITIONAL ORDERS Additional order review: Laboratory Results 02/24/19 02/24/19 02/24/19 01:47 01:47 01:47 PT with INR 12.60 INR 1.07 PTT (Actin FS) 29.6 Sodium Potassium Chloride Carbon Dioxide Anion Gap BUN Creatinine Est GFR (CKD-EPI)AfAm Est GFR (CKD-EPI)NonAf Random Glucose Lactic Acid 1.0 Calcium Total Bilirubin AST ALT Alkaline Phosphatase Total Protein Albumin Lipase 6809 H Urine Color Urine Appearance Urine pH Ur Specific [address] Urine Protein Urine Glucose (UA) Urine Ketones Urine Blood Urine Nitrite Urine Bilirubin Urine Urobilinogen Ur Leukocyte Esterase Urine WBC (Auto) Urine RBC (Auto) Urine Casts (Auto) U Epithel Cells (Auto) Urine Bacteria (Auto) 02/24/19 02/24/19 01:47 01:19 PT with INR INR PTT (Actin FS) Sodium 142 Potassium 4.4 Chloride 105 Carbon Dioxide 29 Anion Gap 7 L BUN 14.9 Creatinine 0.7 Est GFR (CKD-EPI)AfAm 101.03 Est GFR (CKD-EPI)NonAf 87.17 Random Glucose 123 H Lactic Acid Calcium 10.1 Total Bilirubin 3.1 H D AST 502 H ALT 302 H Alkaline Phosphatase 424 H Total Protein 7.8 Albumin 4.3 Lipase Urine Color Yellow Urine Appearance Clear Urine pH 6.[address] 1.015 Urine Protein Negative Urine Glucose (UA) Negative Urine Ketones Negative Urine Blood Trace-lysed Urine Nitrite Negative Urine Bilirubin 1+ H Urine Urobilinogen 1.0 Ur Leukocyte Esterase Negative Urine WBC (Auto) 2.6 Urine RBC (Auto) 1.4 Urine Casts (Auto) 0 U Epithel Cells (Auto) 0.4 Urine Bacteria (Auto) 2.0 02/24/19 01:47 RBC 4.85 MCV 88.1 MCHC 33.7 RDW 13.9 MPV 8.9 Neutrophils % 82.2 D Lymphocytes % 8.0 D Monocytes % 8.3 Eosinophils % 1.1 D Basophils % 0.4 - Medications Given in the ED: ED Medications Discontinued Medications Generic Name Dose Route Start Last Admin Trade Name Freq PRN Reason Stop Dose Admin Acetaminophen 1,000 mg 02/24/19 01:44 02/24/19 01:52 Ofirmev Injection - IVPB 02/24/19 01:45 1,000 mg ONCE ONE Administration Sodium Chloride 1,000 mls @ 1,000 mls/hr 02/24/19 01:12 02/24/19 01:52 Normal Saline - IV 02/24/19 02:11 1,000 mls/hr ASDIR STA Administration <Deana Casarez - Last Filed: 02/24/19 03:33> - LABORATORY CBC & Chemistry Diagram: 02/24/19 01:47 02/24/19 01:47 <Chace Delaney - Last Filed: 02/24/19 08:52> Medical Decision Making - Medical Decision Making 02/24/19 73 y/o F with hx gallstones, duodenal stricture, cardiac stenting, recent admission for gallstones with LFT elevations p/w acute onset back and abdominal pain, abdominal bloating, similar to prior episode of cholecystitis two weeks ago. Most likely acute gallbladder pathology, choledocholithiasis vs cholecystitis. ERCP previously deferred given improved symptoms and decreasing LFTs, and in consideration of her requiring eliquis for one year s/p cardiac stenting. Plan: CBC CMP Lipase Lactate EKG CXR PT/INR, PTT UA Urine culture Abdominal Ultrasound 1L IV NS Acetaminophen IV Dispo: Pending ultrasound/labs, likely admit --- Ultrasound significant for common bile duct dilation to 1.1cm (centimeter) as well as gallstones. --- LFTs elevated >500, plan for admission pending remaining lab results --- Lipase > 6800, indicative of gallstone pancreatitis. --- Patient admitted to Dr. Billings <Chace Delaney - Last Filed: 02/24/19 08:52> *DC/Admit/Observation/Transfer - Discharge Dispostion Decision to Admit order: Yes <Deana Casarez - Last Filed: 02/24/19 03:33> <Chace Delaney - Last Filed: 02/24/19 08:52> Diagnosis at time of Disposition: Pancreatitis - Discharge Dispostion Condition at time of disposition: Guarded
[2019-02-24] MEDS ORDERED: SODIUM CHLORIDE 1,000 ML IV STA (01:12)
[2019-02-24] MEDS ORDERED: ACETAMINOPHEN 1000 MG/100 ML VIAL (NON FORMULARY) IVPB ONE (01:44)
[2019-02-24] MEDS ORDERED: ACETAMINOPHEN INJECTION 100 ML IVPB ONE (01:53)
[2019-02-24 01:58] LABS: BASO % 0.4 % (0-2.0); EOS % 1.1 % (0-4.5); HEMATOCRIT 42.7 % (32.4-45.2); HEMOGLOBIN 14.4 GM/dL (10.7-15.3); MCH 29.7 pg (25.7-33.7); MCHC 33.7 g/dl (32.0-36.0); MEAN CELL VOLUME 88.1 fl (80-96); MEAN PLT VOLUME 8.9 fl (7.5-11.1); MONO % 8.3 % (3.8-10.2); NEUT % 82.2 % (42.8-82.8); PLATELET COUNT 329 K/MM3 (134-434); RBC 4.85 M/mm3 (3.60-5.2); RDW 13.9 % (11.6-15.6); WHITE BLOOD COUNT 9.6 K/mm3 (4.0-10.0)
[2019-02-24 02:00] LABS: URINE APPEARANCE Clear; URINE BILIRUBIN 1+ (NEGATIVE); URINE COLOR Yellow; URINE GLUCOSE (UA) Negative (NEGATIVE); URINE KETONE Negative (NEGATIVE); URINE LEUK ESTERASE Negative (NEGATIVE); URINE NITRITE Negative (NEGATIVE); URINE PROTEIN Negative (NEGATIVE)
[2019-02-24 02:11] LABS: INR 1.07 (0.83-1.09); PROTHROMBIN TIME (PATIENT) 12.6 SEC (9.7-13.0)
[2019-02-24 02:11] LABS: EPI CELLS 0.4 /HPF (0-5/HPF); HYALINE CASTS 0 /lpf (0-8); URINE RBC 1.4 /hpf (0-4); URINE WBC 2.6 /hpf (0-5)
[2019-02-24 02:13] LABS: ACTIVATED PTT 29.6 SECONDS (25.2-36.5)
--- NOTE | 2019-02-24 02:31 | PDOC ---
Attending Attestation - Resident Resident Name: Chace Delaney - ED Attending Attestation I have performed the following: I have examined & evaluated the patient, The case was reviewed & discussed with the resident, I agree w/resident's findings & plan - HPI HPI: 02/24/19 02:31 Pt comes with nausea and RUQ pain. She has known GB disease. - Physicial Exam PE: 02/24/19 02:31 Agree with resident exam - Medical Decision Making 02/24/19 02:31 Patient Name: LISA MOGRAN THIS IS A PRELIMINARY REPORT FROM [facility] DATE OF SERVICE: 2019-02-24 01:19:45 IMAGES: 32 EXAM: Ultrasound ABDOMEN US -LIMITED HISTORY: Diffuse abdominal pain COMPARISON: None. FINDINGS: Liver appears normal. There is cholelithiasis.The interventional radiology technologist indicates the absence of a Asencio Sign Common bile duct is distended measuring 11 mm. No ductal stone is appreciated. Right kidney appears normal measuring 9 cm in length. There is a upper pole cyst. Pancreas appears normal. Vascular structures appear normal. IMPRESSION: Cholelithiasis with distention to common bile duct 02/24/19 03:19 Pt has a lipase of 6000+ and LFTs are elevated 02/24/19 03:29 Pt will be admitted to Dr. Billings. She is NPO and she has been given a prophylactic dose of abx
[2019-02-24 03:03] LABS: ALBUMIN 4.3 g/dl (3.4-5.0); BILIRUBIN,TOTAL 3.1 mg/dL (0.2-1); BLOOD UREA NITROGEN 14.9 mg/dL (7-18); CALCIUM 10.1 mg/dL (8.5-10.1); CREATININE 0.7 mg/dL (0.55-1.3); POTASSIUM 4.4 mmol/L (3.5-5.1); TOT PROT 7.8 g/dl (6.4-8.2)
[2019-02-24] MEDS ORDERED: PIPERACILLIN/TAZOB 3.375 GM 3.375 GM in DEXTROSE 5%-WATER - 50 ML IVPB ONE (03:19)
[2019-02-24] MEDS ORDERED: PIPERACILLIN/TAZOB 3.375 GM 3.375 GM/50 ML BAG IVPB ONE (03:24)
[2019-02-24 06:58] VITALS: BMI 27.3
[2019-02-24] MEDS ORDERED: ACETAMINOPHEN 325 MG TABLET (FP) PO PRN ×2 (07:16→07:55)
--- NOTE | 2019-02-24 07:21 | HP ---
Admitting History and Physical - Primary Care Physician PCP: Ale Billings S - Admission Chief Complaint: abdominal / back pain History of Present Illness: 73 y/o F with hx of ASHD, cardiac OM1 stenting 05/26 PCI/FAIZA stent, also recent admission for gallstones with LFT elevations, now admitted with acute onset back and abdominal pain, abdominal bloating, similar to prior episode of cholecystitis two weeks ago. In ER dx with gallstones pancreatitis and CBD dilation, high LFTs high BILI; Most likely acute gallbladder pathology, choledocholithiasis vs cholecystitis. 2 weeks ago ERCP was deferred given improved symptoms and decreasing LFTs, and in consideration of her requiring eliquis for one year s/p cardiac stenting. Pt was advised by GI dr Sanders to go to [facility] / biliary svc dr Mohinder Martínez but she did not go yet, since last DC from ; she finished po ATB last week as outpt History Source: Patient, Medical Record Limitations to Obtaining History: No Limitations - Past Medical History Cardiovascular: Yes: CAD, HTN Pulmonary: Yes: COPD Gastrointestinal: Yes: Pancreatitis, Other (García's Esophagus, duodenal bulb / 1st portion duodenum stricture) Hepatobiliary: Yes: Cholelithiasis, Cholecystitis, Choledocholithiasis Musculoskeletal: Yes: Chronic low back pain - Past Surgical History Past Surgical History: Yes: Joint Replacement (B/L hip replacement), Stent - Smoking History Smoking history: Former smoker Have you smoked in the past 12 months: No If you are a former smoker, when did you quit?: 2006 - Alcohol/Substance Use Hx Alcohol Use: No History of Substance Use: reports: None - Social History Usual Living Arrangement: Yes: Alone ADL: Independent History of Recent Travel: No Home Medications - Allergies Allergies/Adverse Reactions: Allergies Allergy/AdvReac Type Severity Reaction Status Date / Time No Known Allergies Allergy Verified 02/24/19 00:25 - Home Medications Home Medications: Ambulatory Orders Bimatoprost [Lumigan] 1 drop IO HS 09/19/17 Timolol 0.5% [Timoptic 0.5%] 1 drop OS BID 09/19/17 Acetaminophen [Tylenol] 650 mg PO DAILY PRN #0 tab 02/11/19 Aspirin Coated [Ecotrin -] 81 mg PO DAILY tablet.ec 02/11/19 Clopidogrel Bisulfate [Clopidogrel] 75 mg PO DAILY #0 tab 02/11/19 Metoprolol Succinate 12.5 mg PO DAILY #0 tab 02/11/19 Oxycodone HCl/Acetaminophen [Percocet 5-325 mg Tablet] 0.5 tab PO BID PRN #0 tab MDD 5 mg 02/11/19 Pantoprazole Sodium [Protonix] 40 mg PO HS #0 tab 02/11/19 Atorvastatin Ca [Lipitor] 40 mg PO HS 02/24/19 Family Disease History - Family Disease History Family Disease History: Other: Father (: 75: [place]), Mother (: 85), Sister (2, healthy) Review of Systems - Review of Systems Constitutional: denies: Chills, Fever Eyes: denies: Double Vision, Eye Pain HENT: denies: Difficult Swallowing, Ear Pain Neck: denies: Pain on Movement, Tenderness Cardiovascular: denies: Chest Pain, Shortness of Breath Respiratory: reports: PND. denies: Cough, SOB Gastrointestinal: reports: Abdominal Pain, Bloating. denies: Constipation, Diarrhea, Vomiting Genitourinary: denies: Burning, Dysuria, Flank Pain Musculoskeletal: reports: Back Pain (chronic) Neurological: denies: Change in LOC, Change in Speech, Confusion Hematology/Lymphatic: denies: Easily Bruised, Excessive Bleeding Psychiatric: denies: Anxiety, Depression Physical Examination Vital Signs: Vital Signs Temperature 98.7 F 02/24/19 03:34 Pulse Rate 66 02/24/19 04:50 Respiratory Rate 18 02/24/19 04:50 Blood Pressure 138/77 02/24/19 04:50 O2 Sat by Pulse Oximetry (%) 97 02/24/19 04:50 Constitutional: Yes: No Distress, Calm Eyes: Yes: Conjunctiva Clear HENT: Yes: Atraumatic Neck: Yes: Supple Cardiovascular: Yes: Regular Rate and Rhythm Respiratory: Yes: CTA Bilaterally Gastrointestinal: Yes: Soft, Tenderness (mild generalized) Musculoskeletal: No: Joint Stiffness, Joint Swelling Extremities: No: Cold, Cool Edema: No Integumentary: No: Rash, Venous Stasis Changes Neurological: Yes: WNL, Alert, Oriented ...Motor Strength: WNL Psychiatric: Yes: WNL, Alert, Oriented. 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 The concern is the managing the bile duct in the setting of Plavix, duodenal stricture, and no cardiac senior label specialist. NPO, IVF pain meds prn d/w transfer center at [facility] (Sondra and dr Hairston) and pt was accepted for transfer d/w pt she agreed d/w staff papers done, awaiting bed prognosis guarded
[2019-02-24] MEDS ORDERED: SODIUM CHLORIDE 1,000 ML IV SCH (07:30)
[2019-02-24] MEDS ORDERED: oxyCODONE HCL 5 MG TABLET PO PRN (07:54)
--- NOTE | 2019-02-24 09:17 | CON.CARD ---
Consult Consult Specialty:: Cardiology - History of Present Illness History of Present Illness: 73 y/o F with hx gallstones, duodenal stricture, cardiac stenting, recent admission for gallstones with LFT elevations p/w acute onset back and abdominal pain, abdominal bloating, similar to prior episode of cholecystitis two weeks ago. Most likely acute gallbladder pathology, choledocholithiasis vs cholecystitis. ERCP previously deferred given improved symptoms and decreasing LFTs, and in consideration of her requiring eliquis for one year s/p cardiac stenting. PMH Bilateral hip-replacement 2012 and 2013 Cardiac Cath: [facility] by Dr. Rodriguez PCI of OM1- FAIZA OM1 Left Main patent- short LAD proximal 50%, mid 50% LCx proximal 30%, mid 40% OM1 90% large vessel trifurcating RCA proximal 40%, mid 30%, distal 30% Ongoing medical problems Palpitations GERD PAD - 50-69% stenosis of the left carotid artery Mild fibrocalcific plaque was noted at the right carotid bulb and moderate fibrocalcific plaque was noted at the left caroitd bulb - 2017 - History Source History Provided By: Patient, Medical Record - Past Medical History Cardio/Vascular: Yes: CAD, HTN Pulmonary: Yes: COPD Gastrointestinal: Yes: Other (García's Esophagus, duodenal bulb / 1st portion duodenum stricture) Musculoskeletal: Yes: Chronic low back pain Additional Medical History: 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 - Past Surgical History Past Surgical History: Yes: Joint Replacement (B/L hip replacement), Stent - Alcohol/Substance Use Hx Alcohol Use: No History of Substance Use: reports: None - Smoking History Smoking history: Never smoked Have you smoked in the past 12 months: No If you are a former smoker, when did you quit?: 2006 - Social History Usual Living Arrangement: Alone ADL: Independent History of Recent Travel: No Home Medications - Allergies Allergies/Adverse Reactions: Allergies Allergy/AdvReac Type Severity Reaction Status Date / Time No Known Allergies Allergy Verified 02/24/19 00:25 - Home Medications Home Medications: Ambulatory Orders Bimatoprost [Lumigan] 1 drop IO HS 09/19/17 Timolol 0.5% [Timoptic 0.5%] 1 drop OS BID 09/19/17 Aspirin Coated [Ecotrin -] 81 mg PO DAILY tablet.ec 02/11/19 Clopidogrel Bisulfate [Clopidogrel] 75 mg PO DAILY #0 tab 02/11/19 Metoprolol Succinate 12.5 mg PO DAILY #0 tab 02/11/19 Pantoprazole Sodium [Protonix] 40 mg PO HS #0 tab 02/11/19 Atorvastatin Ca [Lipitor] 40 mg PO HS 02/24/19 Sodium Chloride [Normal Saline -] 100 ml IV ASDIR infus.bag 02/24/19 oxyCODONE HCL [Roxicodone -] 2.5 mg PO BID PRN tablet MDD 5 mg 02/24/19 Family Disease History - Family Disease History Family Disease History: Other: Father (: 75: [place]), Mother (: 85), Sister (2, healthy) Review of Systems - Review of Systems Constitutional: reports: No Symptoms Eyes: reports: No Symptoms HENT: reports: No Symptoms Neck: reports: No Symptoms Cardiovascular: reports: No Symptoms Gastrointestinal: reports: Abdominal Pain, Bloating Genitourinary: reports: No Symptoms Breasts: reports: No Symptoms Reported Musculoskeletal: reports: No Symptoms Integumentary: reports: No Symptoms Neurological: reports: No Symptoms Endocrine: reports: No Symptoms Hematology/Lymphatic: reports: No Symptoms Psychiatric: reports: No Symptoms Vital Signs: Vital Signs Temperature 98.7 F 02/24/19 03:34 Pulse Rate 66 02/24/19 04:50 Respiratory Rate 18 02/24/19 07:29 Blood Pressure 138/77 02/24/19 04:50 O2 Sat by Pulse Oximetry (%) 97 02/24/19 04:50 Constitutional: Yes: Well Nourished, No Distress, Calm Eyes: Yes: WNL, Conjunctiva Clear, EOM Intact HENT: Yes: WNL, Atraumatic, Normocephalic Neck: Yes: WNL, Supple, Trachea Midline Respiratory: Yes: WNL, Regular, CTA Bilaterally Gastrointestinal: Yes: WNL, Normal Bowel Sounds Renal/: Yes: WNL Cardiovascular: Yes: WNL, Regular Rate and Rhythm Musculoskeletal: Yes: WNL Extremities: Yes: WNL Integumentary: Yes: WNL Neurological: Yes: WNL, Alert, Oriented ...Motor Strength: WNL Psychiatric: Yes: WNL, Alert, Oriented - Other Data Labs, Other Data: CBC, BMP 02/24/19 01:47 02/24/19 01:47 INR, PTT INR 1.07 (0.83-1.09) 02/24/19 01:47 Problem List - Problems (1) Pancreatitis Code(s): K85.90 - ACUTE PANCREATITIS WITHOUT NECROSIS OR INFECTION, UNSP (2) Biliary colic Code(s): K80.50 - CALCULUS OF BILE DUCT W/O CHOLANGITIS OR CHOLECYST W/O OBST (3) CAD (coronary artery disease) Code(s): I25.10 - ATHSCL HEART DISEASE OF [place] CORONARY ARTERY W/O ANG PCTRS (4) Cholangitis Code(s): K83.09 - OTHER CHOLANGITIS (5) Cholecystitis Code(s): K81.9 - CHOLECYSTITIS, UNSPECIFIED (6) Choledocholithiasis with obstruction Code(s): K80.51 - CALCULUS OF BILE DUCT W/O CHOLANGITIS OR CHOLECYST W OBST (7) Cholelithiasis Code(s): K80.20 - CALCULUS OF GALLBLADDER W/O CHOLECYSTITIS W/O OBSTRUCTION (8) Diverticulosis large intestine w/o perforation or abscess w/o bleeding Code(s): K57.30 - DVRTCLOS OF LG INT W/O PERFORATION OR ABSCESS W/O BLEEDING (9) Duodenal stricture Code(s): K31.5 - OBSTRUCTION OF DUODENUM (10) Food poisoning Code(s): T62.91XA - TOXIC EFFECT OF UNSP NOXIOUS SUB EATEN FOOD, ACC, INIT Qualifiers: Encounter type: initial encounter Injury intent: accidental or unintentional Qualified Code(s): T62.91XA - Toxic effect of unspecified noxious substance eaten as food, accidental (unintentional), initial encounter (11) HTN (hypertension) Code(s): I10 - ESSENTIAL (PRIMARY) HYPERTENSION Qualifiers: Hypertension type: essential hypertension Qualified Code(s): I10 - Essential (primary) hypertension (12) History of coronary artery stent placement Code(s): Z95.5 - PRESENCE OF CORONARY ANGIOPLASTY IMPLANT AND GRAFT (13) Hypercholesterolemia Code(s): E78.00 - PURE HYPERCHOLESTEROLEMIA, UNSPECIFIED Assessment/Plan 73 y/o F with hx gallstones, duodenal stricture, cardiac stenting 2017, recent admission for gallstones with LFT elevations p/w acute onset back and abdominal pain, abdominal bloating, similar to prior episode of cholecystitis two weeks ago. elevated LFTs/lipase Plan ekg Gi w/u awaiting transfer to [facility] for further GI w/u
--- NOTE | 2019-02-24 09:31 | CONSULT ---
- Consultation REQUESTING PROVIDER: Savage Chung - General Surgery CONSULT REQUEST: We have been asked to surgically evaluate this patient for GS Pancreatitis PCP: Deana Casarez HPI: Patient known to General Surgery Service as she was consulted for same problem on 02/10/[address] Savage Valiente. Chart reviewed from that visit. 73F with presumed benign stricture of duodenum from PUD, fresh cardiac stent on Plavix, currently being mangaed by Internal Medicine without access to a cardiac lab systems analyst, uses cocaine, and presents with clinical bile duct obstruction. Unlikely to also have acute cholecystitis and if clinical concern could have HIDA and perc drainage per IR service. The primary challenge/ concern of the GI service is the managing the bile duct in the setting of Plavix , duodenal stricture, and no cardiac lab systems analyst. Once bile duct is cleared patient would benefit from cholecystecotmy to prevent recurrence but the risk of holding Plavix therapy in the first year of a stent for this non-emergent prophylactic surgery is unlikely warranted with the high stent occlusion risk and especially in a hospital without emergent cardiac intervention capability. GI plans are to avoid ERCP if labs cont to improve with plans for out-pt cholecystectomy at [facility] where she has relationships with physicians and had her stent placed. This is apparently a new type of stent and stopping Plavix after 6 months is possible but not ideal. Pt can also consider elective cholecystectomy after May at [facility] but she is currently more comfortable at [place]. 73 y/o F with hx , cardiac stenting, recent admission for gallstones with LFT elevations p/w acute onset back and abdominal pain, abdominal bloating, similar to prior episode of cholecystitis two weeks ago. Most likely acute gallbladder pathology, choledocholithiasis vs cholecystitis. ERCP previously deferred given improved symptoms and decreasing LFTs, and in consideration of her requiring eliquis for one year s/p cardiac stenting. PMHx: Gallstones, Duodenal stricture, CAD. HTN. COPD. García's Esophagus, Duodenal Stricture (1st portion). Chronic LBP. Nasal septal defect (secondary to cocaine use) PSHx: Bilateral Total Hip Replacements (2012 & 2013). Cardiac Cath: [facility] by Dr. Rodriguez PCI of OM1- Home Meds Bimatoprost [Lumigan] 1 drop IO HS 09/19/17 Timolol 0.5% [Timoptic 0.5%] 1 drop OS BID 09/19/17 Acetaminophen [Tylenol] 650 mg PO DAILY PRN #0 tab 02/11/19 Aspirin Coated [Ecotrin -] 81 mg PO DAILY tablet.ec 02/11/19 Clopidogrel Bisulfate [Clopidogrel] 75 mg PO DAILY #0 tab 02/11/19 Metoprolol Succinate 12.5 mg PO DAILY #0 tab 02/11/19 Oxycodone HCl/Acetaminophen [Percocet 5-325 mg Tablet] 0.5 tab PO BID PRN #0 tab MDD 5 mg 02/11/19 Pantoprazole Sodium [Protonix] 40 mg PO HS #0 tab 02/11/19 Atorvastatin Ca [Lipitor] 40 mg PO HS 02/24/19 Allergies: NKDA ROS: All systems reviewed and considered negative except for what's contained in HPI. PE: GENERAL: Awake, alert, and fully oriented, in no acute distress. HEAD: Normal with no signs of trauma. EYES: PERRL, sclera anicteric, conjunctiva clear. LUNGS: CTA bilat. HEART: RRR. No murmurs detected. ABD: Soft, mild epigastric tenderness. Not distended, normoactive bowel sounds, no guarding, no rebound, no masses. No organomegaly. MUSCULOSKELETAL: Normal ROM at all joints. No bony deformities or tenderness. No CVA tenderness. UE: 2+ pulses, warm, well-perfused. No cyanosis. Cap refill <2 seconds. No peripheral edema. LE: 2+ pulses, warm, well-perfused. No calf tenderness. No peripheral edema. NEURO: GMNVI bilat PSYCH: Cooperative. Good eye contact. Appropriate mood and affect. SKIN: Warm, dry, normal turgor, no rashes or lesions noted. Last Vital Signs Temp Pulse Resp BP Pulse Ox 98.7 F 80 20 148/85 97 02/24/19 09:21 02/24/19 09:21 02/24/19 09:21 02/24/19 09:21 02/24/19 04:50 CBC, BMP 02/24/19 01:47 02/24/19 01:47 Laboratory Tests 02/08/19 02/09/19 02/10/19 02/11/19 02/24/19 20:10 06:25 07:14 08:41 01:47 Total Bilirubin 3.6 4.6 1.4 0.8 3.1 Direct Bilirubin 3.8 1.0 0.5 AST 471 366 172 85 502 ALT 348 339 216 146 302 Lipase CA 19-9 Antigen Lipase 329 029 9970 CA 19-9 Antigen 5 Hepatitis Profile WBC 9.6 K/mm3 (4.0-10.0) 02/24/19 01:47 RBC 4.85 M/mm3 (3.60-5.2) 02/24/19 01:47 Hgb 14.4 GM/dL (10.7-15.3) 02/24/19 01:47 Hct 42.7 % (32.4-45.2) D 02/24/19 01:47 MCV 88.1 fl (80-96) 02/24/19 01:47 Neutrophils % 82.2 % (42.8-82.8) D 02/24/19 01:47 Lymphocytes % 8.0 % (8-40) D 02/24/19 01:47 Monocytes % 8.3 % (3.8-10.2) 02/24/19 01:47 Basophils % 0.4 % (0-2.0) 02/24/19 01:47 INR, PTT INR 1.07 (0.83-1.09) 02/24/19 01:47 Urine Results Urine Color Yellow 02/24/19 01:19 Urine Appearance Clear 02/24/19 01:19 Urine pH 6.0 (5.0-8.0) 02/24/19 01:19 Ur Specific [place] 1.015 (1.010-1.035) 02/24/19 01:19 Urine Protein Negative (NEGATIVE) 02/24/19 01:19 Urine Glucose (UA) Negative (NEGATIVE) 02/24/19 01:19 Urine Ketones Negative (NEGATIVE) 02/24/19 01:19 Urine Blood Trace-lysed (NEGATIVE) 02/24/19 01:19 Urine Nitrite Negative (NEGATIVE) 02/24/19 01:19 Urine Bilirubin 1+ (NEGATIVE) H 02/24/19 01:19 Ur Leukocyte Esterase Negative (NEGATIVE) 02/24/19 01:19 Problem List - Problems (1) Pancreatitis Assessment/Plan: 73 yo female returns to [facility] with same complaint as previous admission from 2 weeks ago. General Surgery as well as GI were both consulted at that time. Per previous notes, it was decided that given the complexity of her case she should go directly to a tertiary care facility --> GI explaied to her that the duodenal stricture may preclude access to the ampulla by ERCP and that this may require dilations or an expandable duodenal stent insertion. Patient agrees and said she feels more comfortable at [facility] as all of her Physicians are there. Once patient is able to have an ERCP, she would need an cholecystectomy AFTER her Plavix could be stopped safely. Patient is not in distress, non-toxic appearing. Continue medical management and transfer at discretion of medical attending. Cont to trend LFTs and Lipase. No planned general surgery intervention. Above plan discussed with my attending and agrees. On behalf of Dr. Valiente, thank you for the opportunity to participate in your patient's care. Code(s): K85.90 - ACUTE PANCREATITIS WITHOUT NECROSIS OR INFECTION, UNSP (2) CAD (coronary artery disease) Code(s): I25.10 - ATHSCL HEART DISEASE OF [place] CORONARY ARTERY W/O ANG PCTRS (3) Cholelithiasis Code(s): K80.20 - CALCULUS OF GALLBLADDER W/O CHOLECYSTITIS W/O OBSTRUCTION (4) Duodenal stricture Code(s): K31.5 - OBSTRUCTION OF DUODENUM (5) HTN (hypertension) Code(s): I10 - ESSENTIAL (PRIMARY) HYPERTENSION Qualifiers: Hypertension type: essential hypertension Qualified Code(s): I10 - Essential (primary) hypertension (6) History of coronary artery stent placement Code(s): Z95.5 - PRESENCE OF CORONARY ANGIOPLASTY IMPLANT AND GRAFT Visit type - Case Type Case Type: ED Admission - Emergency Emergency Visit: Yes ED Registration Date: 02/24/19 Care time: The patient presented to the Emergency Department on the above date and was hospitalized for further evaluation of their emergent condition. - New patient This patient is new to me today: Yes Date on this admission: 02/24/19
[2019-02-24] MEDS ORDERED: TIMOLOL 0.5% OPHTHALMIC SOL 5 ML BOTTLE OS SCH (10:00)
[2019-02-24] MEDS ORDERED: CLOPIDOGREL BISULFATE 75 MG TABLET (FP) PO SCH (10:00)
[2019-02-24] MEDS ORDERED: ASPIRIN COATED 81 MG TABLET.EC PO SCH (10:00)
[2019-02-24] MEDS ORDERED: metoPROLOL SUCCINATE 25 MG TAB.SR.24H (FP) PO SCH (10:00)
[2019-02-24 15:31] VITALS: BP 126/75; PULSE 60; TEMP 99.4
--- NOTE | 2019-02-24 17:02 | DS ---
Physical Examination Vital Signs: Vital Signs Temperature 99.4 F 02/24/19 15:29 Pulse Rate 60 02/24/19 15:29 Respiratory Rate 20 02/24/19 15:29 Blood Pressure 126/75 02/24/19 15:29 O2 Sat by Pulse Oximetry (%) 97 02/24/19 04:50 Findings/Remarks: see H&P from today d/w transfer center at [facility] pt accepted and has a bed at [facility] to be transferred today d/w pt and staff received IVF IV zosyn x 1 here is NPO transfer papers done see chart t time 75 min Labs: CBC, BMP 02/24/19 01:47 02/24/19 01:47 Discharge Summary Reason For Visit: BACK PAIN Current Active Problems Pancreatitis (Acute) Procedures: Principal: 73 YOF h/o gallstones pancreatitis and CBD stone admitted with pancreatitis and high LFTs, cholestasis Other Procedures: also h/o ASHD PCI FAIZA stent OM1 05/26 on Plavix, duodenal stricture, OA DJD Back pain; HLP, lung nodule extob Hospital Course: given complexity of the case and no cardiac cath available at [facility] pt will be transferred to [facility] today for further w/u and management; Condition: Guarded - Instructions Disposition: TRANSFER ACUTE CARE/OTHER HOSP - Home Medications Comprehensive Discharge Medication List: Ambulatory Orders Bimatoprost [Lumigan] 1 drop IO HS 09/19/17 Timolol 0.5% [Timoptic 0.5%] 1 drop OS BID 09/19/17 Acetaminophen [Tylenol] 650 mg PO DAILY PRN #0 tab 02/11/19 Aspirin Coated [Ecotrin -] 81 mg PO DAILY tablet.ec 02/11/19 Clopidogrel Bisulfate [Clopidogrel] 75 mg PO DAILY #0 tab 02/11/19 Metoprolol Succinate 12.5 mg PO DAILY #0 tab 02/11/19 Oxycodone HCl/Acetaminophen [Percocet 5-325 mg Tablet] 0.5 tab PO BID PRN #0 tab MDD 5 mg 02/11/19 Pantoprazole Sodium [Protonix] 40 mg PO HS #0 tab 02/11/19 Atorvastatin Ca [Lipitor] 40 mg PO HS 02/24/19
[2019-02-24] MEDS ORDERED: PATIENT'S OWN MEDICATION (NON-FORMULARY) (Bimatoprost [Lumigan] 1 DROP) IO SCH (22:00)
[2019-02-24] MEDS ORDERED: PANTOPRAZOLE 40 MG TABLET (FP) PO SCH (22:00)
[2019-02-24] MEDS ORDERED: ATORVASTATIN CA 40 MG TABLET (FP) PO SCH ×2 (22:00)
== END 2019-02-24 18:04 | disposition short-term general hospital (02) | DRG 444 ==
LOC: JER 23:54 → JERBED 02-24 03:34 → J5S 02-24 05:35
PROVIDERS: ADMIT Emergency Medicine; ATTEND Emergency Medicine
DX: K80.70 Calculus of gallbladder and bile duct without cholecystitis without obstruction (principal); K85.10 Biliary acute pancreatitis without necrosis or infection; I51.0 Cardiac septal defect, acquired; K31.5 Obstruction of duodenum; K76.0 Fatty (change of) liver, not elsewhere classified; I25.10 Atherosclerotic heart disease of native coronary artery without angina pectoris; I10 Essential (primary) hypertension; J44.9 Chronic obstructive pulmonary disease, unspecified; Z95.5 Presence of coronary angioplasty implant and graft; N28.1 Cyst of kidney, acquired
CPT/HCPCS: 36415; 76705-TC; 80053; 81003; 83605; 83690; 85025; 85610; 85730; 87086; 99285-25; J0131; J7030

== ENCOUNTER 2019-03-12 11:35 | Emergency (ER) | payer OTHER, MEDICARE ==
[2019-03-12 11:41] VITALS: BP 123/63; PULSE 63; TEMP 97.7; BMI 26.4
--- NOTE | 2019-03-12 14:15 | PDOC ---
History of Present Illness - General Chief Complaint: Wound Stated Complaint: WOUND CARE Time Seen by Provider: 03/12/19 13:42 History Source: Patient - History of Present Illness Timing/Duration: resolved prior to arrival Past History - Past Medical History Allergies/Adverse Reactions: Allergies Allergy/AdvReac Type Severity Reaction Status Date / Time No Known Allergies Allergy Verified 03/12/19 11:41 Home Medications: Ambulatory Orders Bimatoprost [Lumigan] 1 drop IO HS 09/19/17 Timolol 0.5% [Timoptic 0.5%] 1 drop OS BID 09/19/17 Aspirin Coated [Ecotrin -] 81 mg PO DAILY tablet.ec 02/11/19 Clopidogrel Bisulfate [Clopidogrel] 75 mg PO DAILY #0 tab 02/11/19 Metoprolol Succinate 12.5 mg PO DAILY #0 tab 02/11/19 Pantoprazole Sodium [Protonix] 40 mg PO HS #0 tab 02/11/19 Atorvastatin Ca [Lipitor] 40 mg PO HS 02/24/19 Sodium Chloride [Normal Saline -] 100 ml IV ASDIR infus.bag 02/24/19 oxyCODONE HCL [Roxicodone -] 2.5 mg PO BID PRN tablet MDD 5 mg 02/24/19 Anemia: No Asthma: No Cancer: No Cardiac Disorders: Yes (PALPITATIONS) CVA: No COPD: No CHF: No Dementia: No Diabetes: No GI Disorders: Yes (DIVERTICULOSIS,SHEEHAN'S ESOPHAGUS, DUODENAL ULCER WITH STRICTURE,) Disorders: No HTN: No Hypercholesterolemia: No Liver Disease: No Seizures: No Thyroid Disease: No - Surgical History Abdominal Surgery: No Appendectomy: No Cardiac Surgery: No Cholecystectomy: No Lung Surgery: No Neurologic Surgery: No Orthopedic Surgery: Yes (RIGHT GANGLION EXCISION) - Immunization History Td Vaccination: Yes TDAP Vaccination: Yes - Suicide/Smoking/Psychosocial Hx Smoking History: Former smoker Have you smoked in the past 12 months: No If you are a former smoker, when did you quit?: 2006 Information on smoking cessation initiated: No Hx Alcohol Use: Yes Drug/Substance Use Hx: No Substance Use Type: None Hx Substance Use Treatment: No Review of Systems - Review of Systems Constitutional: No: Chills, Fever, Malaise Respiratory: No: Shortness of Breath Cardiac (ROS): No: Chest Pain ABD/GI: No: Constipated, Diarrhea, Nausea, Vomiting, Abdominal cramping : No: Dysuria, Flank Pain, Hematuria *Physical Exam - Vital Signs Last Vital Signs Temp Pulse Resp BP Pulse Ox 97.7 F 63 16 123/63 98 03/12/19 11:38 03/12/19 11:38 03/12/19 11:38 03/12/19 11:38 03/12/19 11:38 - Physical Exam General Appearance: Yes: Appropriately Dressed. No: Apparent Distress HEENT: positive: Normal Voice Neck: positive: Supple Respiratory/Chest: negative: Respiratory Distress Gastrointestinal/Abdominal: positive: Normal Bowel Sounds, Soft, Other (well ap surg incision sites, steri strip intact to 2 sites, 3rd site w/ no active bleed or e/o infection). negative: Tender, Distended, Guarding, Rebound Integumentary: positive: Dry, Warm Neurologic: positive: Fully Oriented, Alert, Normal Mood/Affect Medical Decision Making - Medical Decision Making 03/12/19 14:29 73 yo F, history of CAD, with multiple stents on plavix, gallstones, pancreatitis, s/p cholecystectomy at [facility] ~2 weeks ago, scheduled for follow-up with Dr. Gaspar next week and now here for dressing change. Patient states her surgical incisions are healing well, but that Steri-Strips fell off over 1 of her wounds yesterday and that wound started bleeding, since resolved. No abdominal pain, nausea, vomiting, constipation, fever or chills. Feels well otherwise See exam Post op bleeding Since resolved On plavix No acute medical complaints otherwise Well clarisse and stable Surg incision sites well clarisse w/ no active bleed or e/o infxn, dressing placed Dc to f/u with Dr Gaspar next week as already scheduled *DC/Admit/Observation/Transfer Diagnosis at time of Disposition: Encounter for wound care - Discharge Dispostion Disposition: HOME Condition at time of disposition: Good - Referrals Referrals: Ale Billings [Primary Care Provider] - - Patient Instructions Additional Instructions: Please follow-up with Dr. Gaspar for you follow up appointment next week as already scheduled - Post Discharge Activity
== END 2019-03-12 14:00 | disposition home or self-care (01) ==
LOC: JER 11:35
DX: Z48.815 Encounter for surgical aftercare following surgery on the digestive system (principal); Z48.01 Encounter for change or removal of surgical wound dressing
CPT/HCPCS: 99281-25

== ENCOUNTER 2020-01-30 06:20 | Day surgery (SDC) | payer OTHER, MEDICARE ==
[2020-01-29 11:37] VITALS: BMI 29.2
[2020-01-30] MEDS ORDERED: LIDOCAINE HCL/PF 1% SDV 5ML VIAL ONE (07:19)
[2020-01-30] MEDS ORDERED: DEXAMETHASONE SOD PHOSPHATE/PF 10 MG/ML SDV ONE (07:19)
[2020-01-30 07:27] VITALS: TEMP 97.8
[2020-01-30] MEDS ORDERED: BUPIVACAINE HCL/PF 0.75% 10 ML VIAL ONE (09:06)
[2020-01-30] MEDS ORDERED: LIDOCAINE 1% P/F 10 MG/ML VIAL INF ONE (09:17)
[2020-01-30] MEDS ORDERED: IOHEXOL 180 MG/1 ML ML IJ ONE (09:18)
[2020-01-30] MEDS ORDERED: BUPIVACAINE HCL/PF 0.75% 10 ML VIAL PNB ONE (09:18)
[2020-01-30 11:24] VITALS: BP 140/70; PULSE 66
--- NOTE | 2020-02-11 12:50 | PROC ---
Procedure Note Procedure: Date of Service 01/30/20 Pre procedure Diagnosis: Lumbar spondylosis Post Procedure Diagnosis: Same Anesthesia: Local Procedure performed: Left L3 L4 L5 Medial branch block Procedure: After the risks and benefits were explained, informed consent was obtained. The patient was then taken to the procedure room and positioned prone on the procedure table. Time out was performed. The region overlying the appropriate vertebral bodies was identified using fluoroscopy. The skin was prepped and draped in the usual sterile fashion. The skin and soft tissues were anesthetized using 1% lidocaine. Using fluoroscopic guidance, 22 gauge 3.5 inch spinal needles were then introduced to the juncture of the superior articular processes and the transverse processes of the Left L3, L4, and L5 medial branches are located. Omnipaque 180 confirmed appropriate needle placement. There was no epidural or vascular flow observed. .75% bupivacaine was drawn into a syringe. 0.5cc of this solution was then injected at each level. The patient tolerated the procedure well and there were no complications. The patient was taken to the post procedure recovery area in good condition. Vital signs remained stable before, and after the procedure. The patient was given oral follow-up instructions.The patient was givena follow up appointment with me in the near future. Atif Kellogg D.O.
== END 2020-01-30 11:26 | disposition home or self-care (01) ==
LOC: JASU-SURG 06:20
PROVIDERS: ATTEND Pain Medicine Pain Medicine
PROC: BR16YZZ Fluoroscopy of Lumbar Facet Joint(s) using Other Contrast (ICD-10-PCS; 2020-01-30)
PROC: 3E0T3BZ Introduction of Anesthetic Agent into Peripheral Nerves and Plexi, Percutaneous Approach (ICD-10-PCS; principal; 2020-01-30 08:30)
DX: M47.816 Spondylosis without myelopathy or radiculopathy, lumbar region (principal)
CPT/HCPCS: 76000-TC-FY

== ENCOUNTER 2023-02-13 04:31 | Day surgery (SDC) | payer OTHER, MEDICARE ==
[2023-02-07 13:09] VITALS: BMI 27.0
[2023-02-13] MEDS ORDERED: TRIAMCINOLONE ACET 40MG/1ML VIAL ONE (07:32)
[2023-02-13] MEDS ORDERED: BUPIVACAINE HCL/PF 0.25% (2.5MG/ML) 10 ML VIAL ONE (07:32)
[2023-02-13] MEDS ORDERED: BUPIVACAINE HCL/PF 0.5% (5MG/ML) 10 ML VIAL ONE (07:33)
[2023-02-13] MEDS ORDERED: LIDOCAINE HCL/PF 1% SDV 5ML VIAL ONE (07:33)
[2023-02-13] MEDS ORDERED: ACETAMINOPHEN 500 MG TABLET (FP) PO PRN (10:18)
[2023-02-13] MEDS ORDERED: BUPIVACAINE HCL/PF 0.5% (5 MG/ML) 30 ML VIAL IJ ONE (11:13)
[2023-02-13] MEDS ORDERED: IOHEXOL 180 MG/1 ML ML IJ ONE ×2 (11:13)
[2023-02-13] MEDS ORDERED: TRIAMCINOLONE ACETONIDE 40 MG/ML 10 ML VIAL IJ ONE ×2 (11:13)
[2023-02-13] MEDS ORDERED: LIDOCAINE HCL 1% PRESERVATIVE FREE - 30ML VIAL IJ ONE ×2 (11:13)
[2023-02-13 12:00] VITALS: PULSE 58
[2023-02-13 12:53] VITALS: BP 130/70; RESP 18; TEMP 98
== END 2023-02-13 13:02 | disposition home or self-care (01) ==
LOC: JASU-SURG 04:31
PROVIDERS: ATTEND Pain Medicine Pain Medicine
PROC: 3E0U3BZ Introduction of Anesthetic Agent into Joints, Percutaneous Approach (ICD-10-PCS; 2023-02-13)
PROC: 3E0U33Z Introduction of Anti-inflammatory into Joints, Percutaneous Approach (ICD-10-PCS; principal; 2023-02-13 11:15)
DX: M53.3 Sacrococcygeal disorders, not elsewhere classified (principal)
CPT/HCPCS: 76000-TC-FY

== ENCOUNTER 2023-04-03 04:35 | Day surgery (SDC) | payer OTHER, MEDICARE ==
[2023-03-29 14:55] VITALS: BMI 27.0
[2023-04-03] MEDS ORDERED: ACETAMINOPHEN 500 MG TABLET (FP) PO PRN (09:01)
[2023-04-03] MEDS ORDERED: IOHEXOL 180 MG/1 ML ML IJ ONE (12:44)
[2023-04-03] MEDS ORDERED: LIDOCAINE 1% P/F 10 MG/ML VIAL INF ONE (12:44)
[2023-04-03] MEDS ORDERED: DEXAMETHASONE SOD PHOSPHATE 10 MG/1 ML VIAL IVPUSH ONE (12:44)
[2023-04-03 13:14] VITALS: RESP 18; TEMP 97.7
[2023-04-03 13:35] VITALS: BP 152/66; PULSE 71
== END 2023-04-03 13:47 | disposition home or self-care (01) ==
LOC: JASU-SURG 04:35
PROVIDERS: ATTEND Pain Medicine Pain Medicine
PROC: 3E0R3BZ Introduction of Anesthetic Agent into Spinal Canal, Percutaneous Approach (ICD-10-PCS; 2023-04-03)
PROC: 3E0R33Z Introduction of Anti-inflammatory into Spinal Canal, Percutaneous Approach (ICD-10-PCS; principal; 2023-04-03 12:00)
DX: M54.16 Radiculopathy, lumbar region (principal)
CPT/HCPCS: 76000-TC-FY; J1100

== ENCOUNTER 2024-01-04 04:15 | Day surgery (SDC) | payer OTHER, MEDICARE ==
[2024-01-01 18:07] VITALS: BMI 26.5
[2024-01-04] MEDS ORDERED: BUPIVACAINE HCL/PF 0.75% 10 ML VIAL ONE (07:18)
[2024-01-04 09:12] VITALS: PULSE 57
[2024-01-04] MEDS: BUPIVACAINE HCL/PF 0.75% 10 ML VIAL NR ONE ×2 (10:32)
[2024-01-04] MEDS: LIDOCAINE HCL 1% PRESERVATIVE FREE - 30ML VIAL IJ ONE ×2 (10:32)
[2024-01-04 11:21] VITALS: BP 140/62; RESP 17; TEMP 97.5
[2024-01-04] MEDS ORDERED: ACETAMINOPHEN 500 MG TABLET (FP) PO PRN (15:43)
== END 2024-01-04 11:40 | disposition home or self-care (01) ==
LOC: JASU-SURG 04:15
PROVIDERS: ATTEND Pain Medicine Pain Medicine
PROC: 3E0T33Z Introduction of Anti-inflammatory into Peripheral Nerves and Plexi, Percutaneous Approach (ICD-10-PCS; 2024-01-04)
PROC: 3E0T3BZ Introduction of Anesthetic Agent into Peripheral Nerves and Plexi, Percutaneous Approach (ICD-10-PCS; principal; 2024-01-04 09:45)
DX: M47.816 Spondylosis without myelopathy or radiculopathy, lumbar region (principal)
CPT/HCPCS: 76000-TC-FY

== ENCOUNTER 2024-02-01 05:27 | Day surgery (SDC) | payer OTHER, MEDICARE ==
[2024-01-30 12:59] VITALS: BMI 26.5
[2024-02-01] MEDS ORDERED: LIDOCAINE HCL/PF 1% SDV 5ML VIAL ONE (07:26)
[2024-02-01] MEDS ORDERED: BUPIVACAINE HCL/PF 0.75% 10 ML VIAL ONE (07:26)
[2024-02-01 08:36] VITALS: RESP 18
[2024-02-01] MEDS: LIDOCAINE HCL 1% PRESERVATIVE FREE - 30ML VIAL NR ONE (10:26)
[2024-02-01] MEDS: BUPIVACAINE HCL/PF 0.75% 10 ML VIAL NR ONE (10:26)
[2024-02-01 12:08] VITALS: TEMP 97.8
[2024-02-01 12:22] VITALS: BP 107/70; PULSE 60
[2024-02-01] MEDS ORDERED: ACETAMINOPHEN 500 MG TABLET (FP) PO PRN (13:35)
== END 2024-02-01 11:20 | disposition home or self-care (01) ==
LOC: JASU-SURG 05:27
PROVIDERS: ATTEND Pain Medicine Pain Medicine
PROC: 3E0T33Z Introduction of Anti-inflammatory into Peripheral Nerves and Plexi, Percutaneous Approach (ICD-10-PCS; 2024-02-01)
PROC: 3E0T3BZ Introduction of Anesthetic Agent into Peripheral Nerves and Plexi, Percutaneous Approach (ICD-10-PCS; principal; 2024-02-01 09:45)
DX: M47.816 Spondylosis without myelopathy or radiculopathy, lumbar region (principal)
CPT/HCPCS: 76000-TC-FY

== ENCOUNTER → 2024-03-06 | Day surgery (SDC) | payer OTHER, MEDICARE ==
[2024-03-05 11:29] VITALS: BMI 26.5
[~2024-03-06] MED LIST: BUPIVACAINE HCL/PF 0.5% (5MG/ML) 10 ML VIAL ONE; BUPIVACAINE HCL/PF 0.75% 10 ML VIAL ONE; DEXAMETHASONE SOD PHOSPHATE 10 MG/1 ML VIAL ONE; LIDOCAINE HCL/PF 1% SDV 5ML VIAL ONE; LIDOCAINE HCL/PF 2% SDV 5ML VIAL ONE
[2024-03-06 11:42] VITALS: RESP 18
[2024-03-06] MEDS: LIDOCAINE HCL 2% (50ML VIAL) NR ONE (16:13)
[2024-03-06] MEDS: DEXAMETHASONE SOD PHOSPHATE 10 MG/1 ML VIAL IVPUSH ONE (16:13)
[2024-03-06] MEDS: LIDOCAINE HCL 1% PRESERVATIVE FREE - 30ML VIAL IJ ONE (16:13)
[2024-03-06] MEDS: BUPIVACAINE HCL/PF 0.75% 10 ML VIAL NR ONE (16:14)
[2024-03-06 16:48] VITALS: TEMP 97.3
[2024-03-06 17:02] VITALS: BP 169/79; PULSE 62
== END | disposition home or self-care (01) ==
LOC: JASU-SURG 04:26
PROVIDERS: ATTEND Pain Medicine Pain Medicine
PROC: 015B3ZZ Destruction of Lumbar Nerve, Percutaneous Approach (ICD-10-PCS; principal; 2024-03-06 13:30)
DX: M47.816 Spondylosis without myelopathy or radiculopathy, lumbar region (principal)
CPT/HCPCS: 76000-TC-FY; J1100

== ENCOUNTER 2024-04-04 03:50 | Day surgery (SDC) | payer OTHER, MEDICARE ==
[2024-03-31 16:24] VITALS: BMI 26.5
[2024-04-04] MEDS ORDERED: LIDOCAINE HCL/PF 2% SDV 5ML VIAL ONE (07:10)
[2024-04-04] MEDS ORDERED: BUPIVACAINE HCL/PF 0.75% 10 ML VIAL ONE (07:11)
[2024-04-04] MEDS ORDERED: LIDOCAINE HCL/PF 1% SDV 5ML VIAL ONE (07:11)
[2024-04-04] MEDS ORDERED: DEXAMETHASONE SOD PHOSPHATE 10 MG/1 ML VIAL ONE (07:11)
[2024-04-04 07:54] VITALS: RESP 18
[2024-04-04] MEDS: LIDOCAINE HCL 2% (50ML VIAL) NR ONE (09:40)
[2024-04-04] MEDS: DEXAMETHASONE SOD PHOSPHATE 10 MG/1 ML VIAL IVPUSH ONE (09:40)
[2024-04-04] MEDS: LIDOCAINE HCL 1% PRESERVATIVE FREE - 30ML VIAL IJ ONE (09:40)
[2024-04-04] MEDS: BUPIVACAINE HCL/PF 0.75% 10 ML VIAL NR ONE (09:40)
[2024-04-04 09:55] VITALS: BP 135/77; PULSE 75; TEMP 98.2
[2024-04-04] MEDS ORDERED: ACETAMINOPHEN 500 MG TABLET (FP) PO PRN (13:20)
== END 2024-04-04 10:38 | disposition home or self-care (01) ==
LOC: JASU-SURG 03:50
PROVIDERS: ATTEND Pain Medicine Pain Medicine
PROC: 015B3ZZ Destruction of Lumbar Nerve, Percutaneous Approach (ICD-10-PCS; principal; 2024-04-04 09:14)
DX: M47.816 Spondylosis without myelopathy or radiculopathy, lumbar region (principal)
CPT/HCPCS: 76000-TC-FY; J1100

== ENCOUNTER 2024-05-22 05:15 | Day surgery (SDC) | payer OTHER, MEDICARE ==
[2024-05-20 17:50] VITALS: BMI 26.5
[2024-05-22] MEDS ORDERED: ACETAMINOPHEN 500 MG TABLET (FP) PO PRN (09:19)
[2024-05-22 11:49] VITALS: TEMP 97.7
[2024-05-22 12:59] VITALS: BP 129/51; PULSE 54; RESP 18
== END 2024-05-22 13:25 | disposition home or self-care (01) ==
LOC: JASU-SURG 05:15
PROVIDERS: ATTEND Pain Medicine Pain Medicine
PROC: 3E0U3GC Introduction of Other Therapeutic Substance into Joints, Percutaneous Approach (ICD-10-PCS; principal; 2024-05-22 12:45)
DX: M53.3 Sacrococcygeal disorders, not elsewhere classified (principal)
CPT/HCPCS: 76000-TC-FY

== ENCOUNTER 2024-06-20 04:47 | Day surgery (SDC) | payer OTHER, MEDICARE ==
[2024-06-18 18:44] VITALS: BMI 25.6
[2024-06-20] MEDS ORDERED: TRIAMCINOLONE ACET 40MG/1ML VIAL ONE (07:15)
[2024-06-20] MEDS ORDERED: BUPIVACAINE HCL/PF 0.5% (5MG/ML) 10 ML VIAL ONE (07:15)
[2024-06-20] MEDS ORDERED: LIDOCAINE HCL/PF 1% SDV 5ML VIAL ONE (07:15)
[2024-06-20 08:07] VITALS: RESP 18
[2024-06-20] MEDS: BUPIVACAINE HCL/PF 0.5% (5 MG/ML) 30 ML VIAL IJ ONE (09:36)
[2024-06-20] MEDS: TRIAMCINOLONE ACET 40MG/1ML VIAL NR ONE (09:36)
[2024-06-20] MEDS: IOHEXOL 180 MG/1 ML ML IJ ONE (09:36)
[2024-06-20] MEDS: LIDOCAINE HCL 1% PRESERVATIVE FREE - 30ML VIAL IJ ONE ×2 (09:36)
[2024-06-20 10:58] VITALS: BP 125/75; PULSE 73; TEMP 97.8
[2024-06-20] MEDS ORDERED: ACETAMINOPHEN 500 MG TABLET (FP) PO PRN (12:26)
== END 2024-06-20 10:45 | disposition home or self-care (01) ==
LOC: JASU-SURG 04:47
PROVIDERS: ATTEND Pain Medicine Pain Medicine
PROC: 3E0U3BZ Introduction of Anesthetic Agent into Joints, Percutaneous Approach (ICD-10-PCS; 2024-06-20)
PROC: 3E0U33Z Introduction of Anti-inflammatory into Joints, Percutaneous Approach (ICD-10-PCS; principal; 2024-06-20 09:00)
DX: M53.3 Sacrococcygeal disorders, not elsewhere classified (principal)
CPT/HCPCS: 76000-TC-FY